=== PATIENT | female | born 1975 | race Caucasian/White ===

== ENCOUNTER → 2023-02-19 12:30 | Outpatient (BNVA) | payer MEDICARE, MEDICAID, SELFPAY | PROVIDERS: PCP Internal Medicine; Visit Provider Dietitian, Registered | DX: K76.0 Fatty (change of) liver, not elsewhere classified (principal); E66.9 Obesity, unspecified; Z68.31 Body mass index [BMI] 31.0-31.9, adult | CPT/HCPCS: 97802 ==

== ENCOUNTER 2023-12-16 08:53 | Outpatient (AMB) | payer MEDICARE, MEDICAID, SELFPAY ==
--- NOTE | 2023-12-16 08:57 | A.OFFVIS_ITS ---
Intake VS Expanded 12/16/23 08:58 Height 5 ft 6 in Weight 209 lb 14.081 oz BMI 33.9 Intake Visit Reasons: GERD/CONFIRMED HPI Nutrition Presentation Details Pt presents for MNT f/u for GERD, fatty liver, BArrets'. The Pt was referred by Timmy Beckett from [facility]. Pt was last seen in 02/2023 . Pt reports she has pre DM and was recently diagnosed with gastroparesis and is continuing to work on dietary modifications. Pt denies vomiting, reports having 1-2 bowel movement per week Pt is looking for information on gastroparesis diet. Most Recent Diabetes Results: No Data to Display Assessment & Plan Assessment & Plan (1) Fatty liver: Code(s): K76.0 - Fatty (change of) liver, not elsewhere classified Plan: Work on choosing low fat foods - see low fat meal plan (2) Obesity (BMI 30.0-34.9): Comment: Pt reports also having gastroparesis and pre DM- will discuss low fat diet concepts Code(s): E66.9 - Obesity, unspecified Plan: USed wt : 89 kg (02/2024) , 95 kg (12/2023) Est kcal needs as per MSJ: 1852 (40% carb, 30% protein/fat) Est fluid needs as per 25-30 ml/d: 2225 Est prot per day as per 1 g/kg bw: 89 Recommend fiber intake : 8-10 g per day and gradually increase to 25-28 g per day or as tolerated Recommend sodium intake per day : less than 2000 mg Educated patient on: ( R = reviewed V = verbalizes understanding N/R = needs review N/A = not applicable * Food sources of carbohydrate, adequate serving sizes and its role in various health conditions: R * Differences between complex carbohydrates a simple carbohydrates, role of fiber in diet: R * Differences between types of fats and role in diet (mono on saturated fat fatty acids, saturated fatty acids, trans fats): R basic low fat * Food sources of sodium in salt and healthy modifications for heart health in kidney health: NR * Healthy plate method concept: R * Physical activity: Benefits a precaution: R Patient Instructions: Work reducing portion sizes of your meals and work on having low fat food options Reduce significantly on fried foods/pastries/chips and similar foods which are high in fat as these exacerbate gastroparesis symptoms Choose fruits (pure, canned in its soft juice preferably) instead of pastries, choose baked, steamed, ground lean protein foods instead of fried see [id number] ivana meal plan as reference Coding Level of Care Code Nutr Indiv Subseq (00974) Diagnoses Fatty liver K76.0 Obesity (BMI 30.0-34.9) E66.9 Time Spent (min) 30
[2023-12-16 08:58] VITALS: BMI 33.9
== END 2023-12-16 09:53 | disposition home or self-care (01) ==
PROVIDERS: PCP Internal Medicine; Visit Provider Dietitian, Registered
DX: K76.0 Fatty (change of) liver, not elsewhere classified (principal); E66.9 Obesity, unspecified

== ENCOUNTER → 2023-12-16 08:53 | Outpatient (BNVA) | payer MEDICARE, MEDICAID, SELFPAY | PROVIDERS: PCP Internal Medicine; Visit Provider Dietitian, Registered | DX: K76.0 Fatty (change of) liver, not elsewhere classified (principal); E66.9 Obesity, unspecified; Z68.33 Body mass index [BMI] 33.0-33.9, adult | CPT/HCPCS: 97803 ==

== ENCOUNTER 2024-03-24 10:07 | Outpatient (AMB) | payer MEDICARE, MEDICAID, SELFPAY ==
[2024-03-24 10:41] VITALS: BMI 33.4
--- NOTE | 2024-03-24 10:41 | A.OFFVIS_ITS ---
VS Expanded 03/24/24 10:41 Height 5 ft 6 in Weight 207 lb 0.225 oz BMI 33.4 Intake Visit Reasons: GERD/GASTROPARESIS/LVM Nutrition Presentation Details: Pt presents for MNT for fatty liver B: water/coffee 10-11 am egg scrambled avocado , sourdough , butter 4-5 pm dinner pasta/chicken beverages: water 3-4 x/d, coffee 1/d fruit:0-1/d ve-3 x/wk fish:not including physical activity: daily life activities BS Monitoring Most Recent Diabetes Results: No Data to Display WUY-Ubtqeox-Fi.Jeor Equation Height: 5 ft 6 in Weight: 207 lb Resting Metabolic Rate: 1588.59 Calculated Activity Level: Sedentary Calories Needed to Maintain Weight: 1906.31 Diagnosis Nutrition problem #1: food nutri know defi As related to (etiology) #1: diagnosis As evidenced by (sign/symptom) #1: knowledge deficit of diet Assessment & Plan Assessment & Plan (1) Fatty liver: Code(s): K76.0 - Fatty (change of) liver, not elsewhere classified Category: Medical Plan: Work on choosing low fat foods - see low fat meal plan (2) Obesity (BMI 30.0-34.9): Comment: Pt reports also having gastroparesis and pre DM- will discuss low fat diet concepts Code(s): E66.9 - Obesity, unspecified Category: Medical Plan: USed wt : 89 kg (02/2024) , 95 kg (12/2023) Est kcal needs as per MSJ: 1852 (40% carb, 30% protein/fat) Est fluid needs as per 25-30 ml/d: 2225 Est prot per day as per 1 g/kg bw: 89 Recommend fiber intake : 8-10 g per day and gradually increase to 25-28 g per day or as tolerated Recommend sodium intake per day : less than 2000 mg Educated patient on: ( R = reviewed V = verbalizes understanding N/R = needs review N/A = not applicable * Food sources of carbohydrate, adequate serving sizes and its role in various health conditions: R * Differences between complex carbohydrates a simple carbohydrates, role of fiber in diet: R * Differences between types of fats and role in diet (mono on saturated fat fatty acids, saturated fatty acids, trans fats): R basic low fat * Food sources of sodium in salt and healthy modifications for heart health in kidney health: NR * Healthy plate method concept: R * Physical activity: Benefits a precaution: R Patient Instructions: Work on having small meals, low in fat Have a meal replacement once a day Coding Level of Care Code Nutr Indiv Subseq (83177) Diagnoses Fatty liver K76.0 Obesity (BMI 30.0-34.9) E66.9 Time Spent (min) 20
[2024-03-30 13:23] VITALS: BMI 33.4
== END 2024-03-24 11:02 | disposition home or self-care (01) ==
PROVIDERS: PCP Internal Medicine; Visit Provider Dietitian, Registered
DX: K76.0 Fatty (change of) liver, not elsewhere classified (principal); E66.9 Obesity, unspecified

== ENCOUNTER → 2024-03-24 10:07 | Outpatient (BNVA) | payer MEDICARE, MEDICAID, SELFPAY | PROVIDERS: PCP Internal Medicine; Visit Provider Dietitian, Registered | DX: K21.9 Gastro-esophageal reflux disease without esophagitis (principal); K31.84 Gastroparesis; K76.0 Fatty (change of) liver, not elsewhere classified; E66.9 Obesity, unspecified; Z71.3 Dietary counseling and surveillance; Z68.33 Body mass index [BMI] 33.0-33.9, adult | CPT/HCPCS: 97803 ==

== ENCOUNTER 2024-06-02 10:04 | Outpatient (AMB) | payer MEDICARE, MEDICAID, SELFPAY ==
--- NOTE | 2024-06-02 10:09 | A.OFFVIS_ITS ---
VS Expanded 06/02/24 10:12 Height 5 ft 6 in Weight 207 lb 7.28 oz BMI 33.5 Intake Visit Reasons: Fatty Liver/CONFIRMED Nutrition Presentation Details: Pt presents for MNT for fatty liver Pt reports making dietary medications, choosing foods with less sugars and less fats. Tends to eat out twice a week and may choose a higher fat meal later feeling uncomfortable BS Monitoring Most Recent Diabetes Results: No Data to Display Assessment & Plan Assessment & Plan (1) Fatty liver: Code(s): K76.0 - Fatty (change of) liver, not elsewhere classified Category: Medical Plan: Work on choosing low fat foods - see low fat meal plan (2) Obesity (BMI 30.0-34.9): Comment: Pt reports also having gastroparesis and pre DM- will discuss low fat diet concepts Code(s): E66.9 - Obesity, unspecified Category: Medical Plan: USed wt : 89 kg (02/2024) , 95 kg (12/2023) Est kcal needs as per MSJ: 1852 (40% carb, 30% protein/fat) Est fluid needs as per 25-30 ml/d: 2225 Est prot per day as per 1 g/kg bw: 89 Recommend fiber intake : 8-10 g per day and gradually increase to 25-28 g per day or as tolerated Recommend sodium intake per day : less than 2000 mg Educated patient on: ( R = reviewed V = verbalizes understanding N/R = needs review N/A = not applicable * Food sources of carbohydrate, adequate serving sizes and its role in various health conditions: R * Differences between complex carbohydrates a simple carbohydrates, role of fiber in diet: R * Differences between types of fats and role in diet (mono on saturated fat fatty acids, saturated fatty acids, trans fats): R basic low fat * Food sources of sodium in salt and healthy modifications for heart health in kidney health: NR * Healthy plate method concept: R * Physical activity: Benefits a precaution: R Patient Instructions: Continue working on choosing lower fat foods (choose lean , steamed vs fried foods, reduce on highly processed foods (fritter/nuggets and similar foods, choose baked/steamed vs fried , reduce on pastries and opt for a fruit of choice ) Have 3 small meals per day Drink water with meals or milk , working on reducing on sugary beverages Coding Level of Care Code Nutr Indiv Subseq (74543) Diagnoses Fatty liver K76.0 Obesity (BMI 30.0-34.9) E66.9 Time Spent (min) 30
[2024-06-02 10:12] VITALS: BMI 33.5
== END 2024-06-02 10:46 | disposition home or self-care (01) ==
PROVIDERS: PCP Internal Medicine; Visit Provider Dietitian, Registered
DX: K76.0 Fatty (change of) liver, not elsewhere classified (principal); E66.9 Obesity, unspecified

== ENCOUNTER → 2024-06-02 10:04 | Outpatient (BNVA) | payer MEDICARE, MEDICAID, SELFPAY | PROVIDERS: PCP Internal Medicine; Visit Provider Dietitian, Registered | DX: K76.0 Fatty (change of) liver, not elsewhere classified (principal); E66.9 Obesity, unspecified; Z68.33 Body mass index [BMI] 33.0-33.9, adult | CPT/HCPCS: 97803 ==

== ENCOUNTER 2024-08-05 10:54 | Outpatient (AMB) | payer MEDICARE, MEDICAID, SELFPAY ==
--- NOTE | 2024-08-05 10:55 | A.OFFVIS_ITS ---
Vital Signs 08/05/24 10:57 Height 5 ft 6 in Weight 202 lb 13.204 oz BMI 32.7 BP 128/80 Blood Pressure Location Rt brachial Position Sitting Pulse 80 Pulse Source Pulse Oximeter Intake Visit Reasons: +BERNARDA/CM Intake Note: New Patient presents today to establish treatment for +BERNARDA Results: Customer Marketing Assistant Required: No Accompanied by: Self / Same As Patient Allergies cyclobenzaprine Allergy (Unknown, Verified 08/05/24 10:56) Unknown hydroxychloroquine [From Plaquenil] Allergy (Unknown, Verified 08/05/24 10:56) Unknown sulfamethoxazole [From Bactrim] Allergy (Unknown, Verified 08/05/24 10:56) Unknown trimethoprim [From Bactrim] Allergy (Unknown, Verified 08/05/24 10:56) Unknown hydrochlorothiazide Adverse Reaction (Unknown, Verified 08/05/24 10:56) Unknown Sulfa (Sulfonamide Antibiotics) Adverse Reaction (Unknown, Verified 08/05/24 10:56) Unknown tramadol Adverse Reaction (Unknown, Verified 08/05/24 10:56) Unknown sulfa drugs Adverse Reaction (Unknown, Uncoded 08/05/24 10:56) Unknown Medication List - Last Reconciled 08/05/24 by Eloina Darnell MD albuterol sulfate 90 mcg/actuation inhalation betamethasone dipropionate 0.05% appl topical cholecalciferol (vitamin D3) 50 mcg PO DAILY famotidine 40 mg PO DAILY pantoprazole 40 mg PO DAILY HPI Comments Details: Patient is a 49-year-old female current everyday smoker with 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 Patient states that for several years she has been having polyarticular joint pain but her biggest complaints are her knees and the tops of her feet. She denies prolonged morning stiffness. Does occasionally get pain in her hands with the usually worse at the end of the day. She also notes muscle cramps that occur during the night. Denies recurrent infections. Denies rashes, photosensitivity, alopecia, oral/nasal ulcers, sicca symptoms, lymphadenopathy, chest pain/shortness of breath, inflammatory type joint pain, foamy urine, lower extremity edema, muscle weakness, Raynaud's Also denies history of seizure, CVA, psychosis, history of kidney problems, history of cytopenias, history of VTE including PE or DVTs OB History: +1 (1st trimester loss at 6 weeks) No known family history of any autoimmune disease. Of note patient has a vitamin B12 deficiency for which she requires infusions for. She is unsure why this may be. She also has reflux complicated by Rodriguez's esophagus although she says she normally does not have any symptoms of reflux. In the past she was told she had fibromyalgia and lupus but was not placed on any treatment [facility] Medical History (Updated 08/05/24 @ 11:14 by Eloina Darnell MD) Vitamin B12 deficiency Positive BERNARDA (antinuclear antibody) Axillary lymphadenopathy delivery delivered Surgical History (Updated 08/05/24 @ 11:01 by CHEY Bonilla) Hx of colonoscopy S/P endoscopy Status post hysteroscopic ablation of endometrium Hx of tubal ligation H/O eye surgery H/O arthroscopy Family History Mother Leukemia Stroke Dementia Father Diabetes Hypertension CKD (chronic kidney disease) Social History Alcohol intake: never Patient Tobacco Use Status: Former Tobacco user Review of Systems Const Details: Review of Systems Constitutional: Denies fever, chills, weight loss ENT: Denies vision changes, eye pain or eye redness, dental caries, dry mouth GI: Denies nausea, vomiting, diarrhea, abdominal pain, change in BM Pulm: Denies SOB, JUAN, hemoptysis, wheezing Cards: Denies chest pain, palpitations Skin: Denies Raynaud's, rash, nail changes, photosensitivity, FIRE EXTINGUISHER INSPECTOR: Denies headaches, weakness, paresthesias, recurrent falls MSK: as per HPI All other systems reviewed and are unremarkable except noted above Physical Exam Vital Signs: Last Vital Signs Pulse 80 11/27/24 10:57 BP 128/80 08/05/24 10:57 BMI result Body Mass Index 32.7 Physical Examination CONSTITUITIONAL Patient alert and cooperative. Well appearing and in no apparent painful distres s HEENT Conjunctiva and sclera clear. ?Pupils equal round and reactive to light. ?No lymphadenopathy. ?Poor dentition. No oral ulcers noted. No evidence of discoid rash to the jamari of ears CHEST/RESPIRATORY SYSTEM Normal respiratory effort and able to speak in complete sentences. ?Clear to auscultation bilaterally. ?No crackles, rales, rhonchi, wheezes heard. CARDIAC SYSTEM Regular rate and rhythm. ?S1 and S2 heard no murmurs. ?Radial pulses intact bilaterally MSK Hands: ?Good registered nurse bone marrow transplant strength bilaterally - 5/5. ?No deformities noted. ?No synovitis noted to the MCPs, PIPs or DIPs. ?No tenderness to palpation of these joints. Wrists: ?Full range of motion at the wrists without pain. ?No tenderness to palpation or synovitis noted to the wrists. Elbows: Full range of motion without pain. No tenderness, weakness, swelling, increased warmth or erythema. Shoulders: Full range of motion without pain. No tenderness, weakness, swelling, increased warmth or erythema. Hips: Full range of motion without pain. Hip bursa: No tenderness to palpation Knees: ?Full range of motion. ?No tenderness, swelling, increased warmth or erythema.?No effusion or crepitations Ankles: Full range of motion. ?No tenderness, swelling, increased warmth or erythema.? Feet: ?Negative squeeze test. ?No tenderness to palpation or swelling of the MTPs. Tender points:??No tenderness to palpation of the neck, shoulders, chest, elbows, hips, buttocks or knees. SKIN Skin intact without rashes. Results Reviewed Results Reviewed: Results reviewed from [facility] consult external. BERNARDA 1:1250 nuclear pattern. Leukocytosis noted. Assessment & Plan Assessment & Plan (1) Positive BERNARDA (antinuclear antibody): Code(s): R76.8 - Other specified abnormal immunological findings in serum Category: Medical Plan: #Positive BERNARDA The presence of antinuclear antibodies (BERNARDA) is mainly associated with connective tissue diseases (CTD). ?However, their presence is found in healthy people especially in women and patients >65. ?In healthy individuals, the frequency of BERNARDA has been shown to be 31.7% of individuals at 1:40 serum dilution, 13.3% at 1:80, 5.0% at 1:160, and 3.3% at 1:320 (2). Some drugs and xenobiotics are also important for the development of BERNARDA (hydralazine, hydrochlorothiazide, minocycline, terbinafine, ciprofloxacin, furosemide, omeprazole). Moreover, the deficiency of vitamin D in the body of patients correlates with occurrence of these antibodies (1). In this patient have a very low suspicion of lupus or any other connective tissue disease at this time. She does not have any clinical evidence to suggest inflammatory arthritis, Raynaud's, alopecia, photosensitivity, rashes, recurrent VTEs, recurrent 2nd trimester miscarriages. What is concerning is the fact that she has chronic B12 deficiency and we do not know why that is. She also has Rodriguez's esophagus. I think it is worth exploring other autoimmune diseases such as autoimmune hepatitis, pernicious anemia, celiac disease, CVID. Blood work sent. She will follow up in 09/28/2024 1. Rosina Avilez, Mehul Woodward, Joslyn Mccallum. Antinuclear antibodies in healthy people and non-rheumatic diseases - diagnostic and clinical implications. Reumatologia. 2018;56(4):243-248. doi: 10.5114/reum.2018.93789. Epub 2017May 09. PMID: [id number]; PMCID: [id number]. 2. Troncoso EM, Shavon TE, Anna JS, Brittany B, Neo R, Memo MJ, Clay T, Fidel JA, Tarah JR, Santo RG, Sharon RN, Harper JS, Trent NF, Janet RJ, Irene Y, Ruba A, Darrell MR, Joanna CASTRO. Range of antinuclear antibodies in healthy individuals. Arthritis Rheum. 1996;40(9):1601-11. doi: 10.1002/art.[id number]. PMID: 8559195. Plan I spent 60 minutes reviewing the record and labs, seeing the patient, discussing the treatment plan and documenting in the medical record Orders: Orders 2 Erythrocyte Sedimentation Rate Today E53.8 - Deficiency of other specified B group vitamins, R76.8 - Other specified abnormal immunological findings in serum Protein Creatinine Ratio, Ur Today E53.8 - Deficiency of other specified B group vitamins, R76.8 - Other specified abnormal immunological findings in serum Thyroglobulin Antibodies Today E53.8 - Deficiency of other specified B group vitamins, R76.8 - Other specified abnormal immunological findings in serum Parietal Cell Antibody Today E53.8 - Deficiency of other specified B group vitamins, R76.8 - Other specified abnormal immunological findings in serum Smooth Muscle Antibody Today E53.8 - Deficiency of other specified B group vitamins, R76.8 - Other specified abnormal immunological findings in serum Mitochondrial Antibody Today E53.8 - Deficiency of other specified B group vitamins, R76.8 - Other specified abnormal immunological findings in serum XR knee RT 3V Today E53.8 - Deficiency of other specified B group vitamins, R76.8 - Other specified abnormal immunological findings in serum XR knee LT 3V Today E53.8 - Deficiency of other specified B group vitamins, R76.8 - Other specified abnormal immunological findings in serum XR foot LT min 3V Today E53.8 - Deficiency of other specified B group vitamins, R76.8 - Other specified abnormal immunological findings in serum XR foot RT min 3V Today E53.8 - Deficiency of other specified B group vitamins, R76.8 - Other specified abnormal immunological findings in serum Protein Electrophoresis, Serum Today E53.8 - Deficiency of other specified B group vitamins, R76.8 - Other specified abnormal immunological findings in serum Immunofixation Pnl, Serum Today E53.8 - Deficiency of other specified B group vitamins, R76.8 - Other specified abnormal immunological findings in serum Complement C3 Today E53.8 - Deficiency of other specified B group vitamins, R76.8 - Other specified abnormal immunological findings in serum Complement C4 Today E53.8 - Deficiency of other specified B group vitamins, R76.8 - Other specified abnormal immunological findings in serum Complete Blood Count Auto Diff Today E53.8 - Deficiency of other specified B group vitamins, R76.8 - Other specified abnormal immunological findings in serum Comprehensive Met. Panel Today E53.8 - Deficiency of other specified B group vitamins, R76.8 - Other specified abnormal immunological findings in serum C Reactive Protein Today E53.8 - Deficiency of other specified B group vitamins, R76.8 - Other specified abnormal immunological findings in serum Scleroderma 70 Antibody Today E53.8 - Deficiency of other specified B group vitamins, R76.8 - Other specified abnormal immunological findings in serum Sjogren's Antibodies Today E53.8 - Deficiency of other specified B group vitamins, R76.8 - Other specified abnormal immunological findings in serum Thyroid Peroxidase Antibodies Today E53.8 - Deficiency of other specified B group vitamins, R76.8 - Other specified abnormal immunological findings in serum Thyroid Stimulating Hormone Today E53.8 - Deficiency of other specified B group vitamins, R76.8 - Other specified abnormal immunological findings in serum XR hand wrist LT Today E53.8 - Deficiency of other specified B group vitamins, R76.8 - Other specified abnormal immunological findings in serum XR hand wrist RT Today E53.8 - Deficiency of other specified B group vitamins, R76.8 - Other specified abnormal immunological findings in serum Immunoglobulins,IgG IgA IgM Today E53.8 - Deficiency of other specified B group vitamins, R76.8 - Other specified abnormal immunological findings in serum Endomysial IgA rflx Titer Today E53.8 - Deficiency of other specified B group vitamins, R76.8 - Other specified abnormal immunological findings in serum Transglutaminase Ab IgG Today E53.8 - Deficiency of other specified B group vitamins, R76.8 - Other specified abnormal immunological findings in serum Beta-2 Glycoprotein Antibody Today E53.8 - Deficiency of other specified B group vitamins, R76.8 - Other specified abnormal immunological findings in serum Lupus Anticoagulant Panel Today E53.8 - Deficiency of other specified B group vitamins, R76.8 - Other specified abnormal immunological findings in serum Cardiolipin Antibodies Today E53.8 - Deficiency of other specified B group vitamins, R76.8 - Other specified abnormal immunological findings in serum Coding Level of Care Code New Pt Level 5 (60722) Complex EM visit Add On G2211 Diagnoses Positive BERNARDA (antinuclear antibody) R76.8
[2024-08-05 10:57] VITALS: BP 128/80; PULSE 80; BMI 32.7
== END 2024-08-05 12:07 | disposition home or self-care (01) ==
PROVIDERS: PCP Internal Medicine; Visit Provider Student in an Organized Health Care Education/Training Program
DX: R76.8 Other specified abnormal immunological findings in serum (principal)
CPT/HCPCS: 99205; G2211

== ENCOUNTER 2024-08-05 10:54 | Outpatient (REF) | payer MEDICARE, MEDICAID, SELFPAY ==
--- NOTE | ~2024-08-05 | XR_ITS ---
EXAMINATION: Bilateral knee series CLINICAL INFORMATION: Reason for Exam R76.8 - Other specified abnormal immunological findings in serum COMPARISON: None. TECHNIQUE: 3 views of each knee including AP upright FINDINGS: Right knee: Postoperative changes related to previous anterior cruciate ligament reconstruction. Mild osteoarthritis of patellofemoral compartment with small marginal osteophytes and possible central osteophytes. The medial and lateral compartments are normal. No joint effusion. Left knee: The bones joints and soft tissues are normal no effusion XR/XR knee RT 3V IMPRESSION: Right knee: Postoperative changes of the right knee. Mild patellofemoral arthrosis. Left knee: Normal Electronically signed by: Bay Braga MD 08/09/2024 01:51 PM EST
--- NOTE | ~2024-08-05 | XR_ITS ---
EXAMINATION: Bilateral knee series CLINICAL INFORMATION: Reason for Exam R76.8 - Other specified abnormal immunological findings in serum COMPARISON: None. TECHNIQUE: 3 views of each knee including AP upright FINDINGS: Right knee: Postoperative changes related to previous anterior cruciate ligament reconstruction. Mild osteoarthritis of patellofemoral compartment with small marginal osteophytes and possible central osteophytes. The medial and lateral compartments are normal. No joint effusion. Left knee: The bones joints and soft tissues are normal no effusion XR/XR knee LT 3V IMPRESSION: Right knee: Postoperative changes of the right knee. Mild patellofemoral arthrosis. Left knee: Normal Electronically signed by: Bay Braga MD 08/09/2024 01:51 PM EST
[2024-08-05 12:10] LABS: MANUAL DIFF FLAG NO
[2024-08-05 12:18] LABS: Basophils Absolute Auto 0.1 X10*3/uL (0.0-0.2); Basophils Percent Auto 0.8 % (0-2); Eosinophils Absolute Auto 0.5 X10*3/uL (0.0-0.4); Eosinophils Percent Auto 3.8 % (0-4); Hematocrit 44.5 % (37.0-47.0); Hemoglobin 14.7 g/dl (12.0-16.0); Imm Gran Abs Auto 0.04 X10*3/uL (0.00-0.03); Imm Gran Pct Auto 0.3 % (0.0-0.4); Lymphocytes Absolute Auto 4.5 X10*3/uL (1.2-4.9); Mean Corpuscular Hemoglobin 29.8 pg (27.0-33.0); Mean Corpuscular Volume 90.1 fL (80.0-98.0); Mean Platelet Volume 10.5 fL (9.4-12.3); Monocytes Percent Auto 7.6 % (2-11); Neutrophils Absolute Auto 6.7 x10*3/uL (2.0-8.3); Neutrophils Percent Auto 52.5 % (45-73); Platelet Count 327 X10*3/uL (160-400); Red Blood Count 4.94 X10*6/uL (4.20-5.50); Red Cell Distribution Width 14.1 % (11.0-16.0); White Blood Count 12.8 X10*3/uL (4.8-10.8)
[2024-08-05 12:57] LABS: Erythrocyte Sedimentation Rate 2 MM/HR (0-20)
[2024-08-05 12:58] LABS: Alanine Aminotransferase 17 U/L (0-31); Albumin Level 3.9 g/dL (3.5-5.0); Alkaline Phosphatase 62 U/L (39-117); Anion Gap 13 (12-20); Aspartate Amino Transferase 22 U/L (5-31); Bilirubin Total 0.4 mg/dL (0.0-1.0); Blood Urea Nitrogen 9 mg/dL (9-16); C Reactive Protein 0.41 mg/dL (< or = 0.50); Calcium 8.9 mg/dL (8.4-10.2); Carbon Dioxide 25 mmol/L (22-29); Chloride 109 mmol/L (96-108); Estimated Glomerular Filt Rate > 60; Glucose Random 114 mg/dL (60-115); Potassium 3.9 mmol/L (3.3-5.1); Sodium 143 mmol/L (135-145); Total Protein 6.3 g/dL (6.5-8.0)
[2024-08-05 13:06] LABS: Thyroid Stimulating Hormone 1.53 uIU/mL (0.32-4.0)
[2024-08-05 13:06] LABS: Creatinine Urine 233.14 mg/dL; Protein/Creatinine Ratio, Ur 0.05 (<0.2); Total Protein Urine Random 11 mg/dL (<12)
[2024-08-07 11:58] LABS: Prot Elec - Albumin 3.7 g/dL (3.8-4.8); Prot Elec - Alpha1 0.3 g/dL (0.2-0.3); Prot Elec - Alpha2 0.5 g/dL (0.5-0.9); Prot Elec - Beta 1 0.4 g/dL (0.4-0.6); Prot Elec - Beta 2 0.2 g/dL (0.2-0.5); Prot Elec - Gamma 0.9 g/dL (0.8-1.7); Prot Elec - Total Protein 5.9 g/dL (6.1-8.1)
[2024-08-07 14:19] LABS: Cardiolipin IgG Ab <2.0 GPL-U/mL; Cardiolipin IgM Ab <2.0 MPL-U/mL
[2024-08-07 16:53] LABS: Complement C3 89 mg/dL (83-193)
[2024-08-07 17:42] LABS: Thyroglobulin Antibodies <1 IU/mL (< or = 1); Thyroid Peroxidase Antibodies <1 IU/mL (<9)
[2024-08-07 21:19] LABS: Antibody to SS-A Antigen <1.0 NEG AI (<1.0 NEG); Antibody to SS-B Antigen <1.0 NEG AI (<1.0 NEG); Scleroderma 70 Antibody <1.0 NEG AI (<1.0 NEG)
[2024-08-07 21:38] LABS: Transglutaminase Ab IgG <1.0 U/mL
[2024-08-10 09:59] LABS: Mitochondrial Antibodies NEGATIVE (NEGATIVE)
[2024-08-10 15:33] LABS: Beta-2 Glycoprotein IgA <2.0 U/mL (<20.0); Beta-2 Glycoprotein IgG <2.0 U/mL (<20.0); Beta-2 Glycoprotein IgM <2.0 U/mL (<20.0)
[2024-08-10 21:44] LABS: IgA 94 mg/dL (47-310); IgG 1070 mg/dL (600-1640); IgM 48 mg/dL (50-300)
[2024-08-11 05:19] LABS: PTT (LAC) Screen 37 sec (<=40)
[2024-08-11 05:39] LABS: Smooth Muscle Antibody 48 U (<20)
[2024-08-11 13:18] LABS: Parietal Cell Antibody <=20.0 Unit (<=20.0)
[2024-08-13 04:28] LABS: Endomysial IgA Antibody Negative (Negative)
== END 2024-08-05 10:55 | disposition home or self-care (01) ==
LOC: HO.XRAY 10:54
PROVIDERS: PCP Internal Medicine; Visit Provider Student in an Organized Health Care Education/Training Program
DX: E53.8 Deficiency of other specified B group vitamins (principal); R76.8 Other specified abnormal immunological findings in serum; K76.0 Fatty (change of) liver, not elsewhere classified; J44.9 Chronic obstructive pulmonary disease, unspecified
CPT/HCPCS: 36415; 73110; 73130; 73562; 73630; 80053; 82570; 82784; 83516; 84156; 84165; 84443; 85025; 85597; 85598; 85613; 85652; 85730; 86015; 86140; 86146; 86147; 86160; 86231; 86235; 86334; 86364; 86376; 86381; 86800; 99202

== ENCOUNTER 2024-08-17 08:26 | Outpatient (REF) | payer MEDICARE, MEDICAID, SELFPAY ==
--- NOTE | ~2024-08-17 | US_ITS ---
EXAMINATION: US ABDOMEN COMPLETE CLINICAL INFORMATION: Fatty change of liver, not elsewhere classified. COMPARISON: None available. TECHNIQUE: Real-time imaging of the abdominal viscera. FINDINGS: PANCREAS: Visualized portions are unremarkable. ABDOMINAL AORTA: The proximal, mid, and distal segments are normal in caliber. INFERIOR VENA CAVA: Visualized portions are normal. LIVER: The liver is normal in size. The liver contour is normal. Increased echogenicity of the liver parenchyma, this can be seen in the setting of hepatic steatosis or liver parenchymal disease. No focal hepatic lesion. There is no intrahepatic biliary duct dilatation seen. GALLBLADDER: The gallbladder is physiologically distended. Multiple mobile gallstones are present. No evidence of gallbladder wall thickening or pericholecystic fluid. COMMON BILE DUCT: Normal in caliber measuring 0.5 cm in diameter. RIGHT KIDNEY: No hydronephrosis. No renal calculi or focal parenchymal lesions. The kidney measures 11.6 cm in maximum dimension. LEFT KIDNEY: No hydronephrosis. No renal calculi or focal parenchymal lesions. The kidney measures 11.3 cm in maximum dimension. SPLEEN: Not visualized. FREE FLUID: None. US/US abdomen complete IMPRESSION: 1. Increased echogenicity of the liver parenchyma, this can be seen in the setting of hepatic steatosis or liver parenchymal disease. 2. Cholelithiasis without ultrasound evidence of acute cholecystitis. Electronically signed by: Phil Correa MD 08/30/2024 01:16 PM [facility]
== END 2024-08-17 08:27 | disposition home or self-care (01) ==
LOC: HO.HMGCX 08:26
PROVIDERS: PCP Internal Medicine; Visit Provider Student in an Organized Health Care Education/Training Program
DX: K76.0 Fatty (change of) liver, not elsewhere classified (principal); R76.8 Other specified abnormal immunological findings in serum; K80.20 Calculus of gallbladder without cholecystitis without obstruction
CPT/HCPCS: 76700

== ENCOUNTER 2024-10-06 10:29 | Outpatient (AMB) | payer MEDICARE, MEDICAID, SELFPAY ==
[2024-10-06 10:31] VITALS: BP 108/78; PULSE 76; BMI 32.5
--- NOTE | 2024-10-06 10:31 | A.OFFVIS_ITS ---
Vital Signs 10/06/24 10:31 Height 5 ft 6 in Weight 201 lb 8.04 oz BMI 32.5 BP 108/78 Blood Pressure Location Lt brachial Position Sitting Pulse 76 Pulse Source Pulse Oximeter Intake Visit Reasons: follow up Intake Note: Patient last see by Doctor Eloina Darnell 08/05/24. Presents today for follow up and XRs/labs test results. Metal Tile Setter Required: No Accompanied by: Self / Same As Patient Allergies cyclobenzaprine Allergy (Unknown, Verified 10/06/24 10:35) Unknown hydroxychloroquine [From Plaquenil] Allergy (Unknown, Verified 10/06/24 10:35) Unknown sulfamethoxazole [From Bactrim] Allergy (Unknown, Verified 10/06/24 10:35) Unknown trimethoprim [From Bactrim] Allergy (Unknown, Verified 10/06/24 10:35) Unknown hydrochlorothiazide Adverse Reaction (Unknown, Verified 10/06/24 10:35) Unknown Sulfa (Sulfonamide Antibiotics) Adverse Reaction (Unknown, Verified 10/06/24 10:35) Unknown tramadol Adverse Reaction (Unknown, Verified 10/06/24 10:35) Unknown sulfa drugs Adverse Reaction (Unknown, Uncoded 10/06/24 10:35) Unknown HPI Comments Details: Patient is a 49-year-old female current everyday smoker with GERD complicated by Rodriguez's esophagus, vitamin B12 deficiency, COPD, gastroparesis, nonalcoholic fatty liver disease, anxiety and depression who presents today for follow up Interval History: Patient presented initially 08/05/2024. For the evaluation of positive BERNARDA in the setting of polyarticular joint pain. Exam and history was not consistent with an autoimmune connective tissue disease however she does have a history of B12 deficiency, gastroparesis and severe GERD which was concerning. Today, No changes from last visit. Recently had liver biopsy which confirmed stage I liver fibrosis in his also following up with GI for autoimmune hepatitis. Rheumatologic History: Patient initially presented for evaluation of positive BERNARDA and polyarthralgias. History was not consistent with lupus or any other autoimmune connective tissue diseases. Her positive BERNARDA is likely related to her autoimmune hepatitis. Initial history: Several years she has been having polyarticular joint pain but her biggest complaints are her knees and the tops of her feet. She denies prolonged morning stiffness. Does occasionally get pain in her hands with the usually worse at the end of the day. She also notes muscle cramps that occur during the night. Denies recurrent infections. Denies rashes, photosensitivity, alopecia, oral/nasal ulcers, sicca symptoms, lymphadenopathy, chest pain/shortness of breath, inflammatory type joint pain, foamy urine, lower extremity edema, muscle weakness, Raynaud's Also denies history of seizure, CVA, psychosis, history of kidney problems, history of cytopenias, history of VTE including PE or DVTs OB History: +1 (1st trimester loss at 6 weeks) No known family history of any autoimmune disease. Of note patient has a vitamin B12 deficiency for which she requires infusions for. She is unsure why this may be. She also has reflux complicated by Rodriguez's esophagus although she says she normally does not have any symptoms of reflux. In the past she was told she had fibromyalgia and lupus but was not placed on any treatment Current Rheumatology Medication(s): [facility] Medical History (Updated 10/06/24 @ 11:03 by Eloina Darnell MD) Autoimmune hepatitis Vitamin B12 deficiency Positive BERNARDA (antinuclear antibody) Axillary lymphadenopathy delivery delivered Surgical History Hx of colonoscopy S/P endoscopy Status post hysteroscopic ablation of endometrium Hx of tubal ligation H/O eye surgery H/O arthroscopy Family History Mother Leukemia Stroke Dementia Father Diabetes Hypertension CKD (chronic kidney disease) Social History Alcohol intake: never Patient Tobacco Use Status: Former Tobacco user Review of Systems Const Details: Review of Systems Constitutional: Denies fever, chills, weight loss ENT: Denies vision changes, eye pain or eye redness, dental caries, dry mouth GI: Denies nausea, vomiting, diarrhea, abdominal pain, change in BM Pulm: Denies SOB, JUAN, hemoptysis, wheezing Cards: Denies chest pain, palpitations Skin: Denies Raynaud's, rash, nail changes, photosensitivity, AVICULTURIST: Denies headaches, weakness, paresthesias, recurrent falls MSK: as per HPI All other systems reviewed and are unremarkable except noted above Physical Exam Vital Signs: Last Vital Signs Pulse 76 10/06/24 10:31 BP 108/78 10/06/24 10:31 BMI result Body Mass Index 32.5 Physical Examination CONSTITUITIONAL Patient alert and cooperative. Well appearing and in no apparent painful distress HEENT Conjunctiva and sclera clear. ?Pupils equal round and reactive to light. ?No lymphadenopathy. ?Poor dentition. No oral ulcers noted. No evidence of discoid rash to the jamari of ears CHEST/RESPIRATORY SYSTEM Normal respiratory effort and able to speak in complete sentences. ?Clear to auscultation bilaterally. ?No crackles, rales, rhonchi, wheezes heard. CARDIAC SYSTEM Regular rate and rhythm. ?S1 and S2 heard no murmurs. ?Radial pulses intact bilaterally MSK Hands: ?Good barrel charrer helper strength bilaterally - 5/5. ?No deformities noted. ?No synovitis noted to the MCPs, PIPs or DIPs. ?No tenderness to palpation of these joints. Wrists: ?Full range of motion at the wrists without pain. ?No tenderness to palpation or synovitis noted to the wrists. Elbows: Full range of motion without pain. No tenderness, weakness, swelling, increased warmth or erythema. Shoulders: Full range of motion without pain. No tenderness, weakness, swelling, increased warmth or erythema. Hips: Full range of motion without pain. Hip bursa: No tenderness to palpation Knees: ?Full range of motion. ?No tenderness, swelling, increased warmth or erythema.?No effusion or crepitations Ankles: Full range of motion. ?No tenderness, swelling, increased warmth or erythema.? Feet: ?Negative squeeze test. ?No tenderness to palpation or swelling of the MTPs. Tender points:??No tenderness to palpation of the neck, shoulders, chest, elbows, hips, buttocks or knees. SKIN Skin intact without rashes. Results Reviewed Results Reviewed: Laboratory Tests 08/05/24 08/05/24 12:05 12:07 WBC 12.8 H RBC 4.94 Hgb 14.7 Hct 44.5 Plt Count 327 ESR 2 Sodium 143 Potassium 3.9 Chloride 109 H Carbon Dioxide 25 BUN 9 Creatinine 0.87 Total Bilirubin 0.4 AST 22 ALT 17 Alkaline Phosphatase 62 C-Reactive Protein 0.41 Albumin 3.9 Protein/Creatinin Ratio 0.05 IgG Total 1070 IgA Total 94 IgM 48 L GALINA Interpretation SEE NOTE SS-A/Ro Antibody <1.0 NEG SS-B/La Antibody <1.0 NEG Scl-70 Scleroderma Ab <1.0 NEG Anti-Mitochondrial Ab NEGATIVE Beta-2-GPI IgG Ab <2.0 Beta-2-GPI IgA Ab <2.0 Beta-2-GPI IgM Ab <2.0 Anti-Smooth Muscle Ab 48 H Tiss Transglutamin IgG <1.0 Thyroglobulin Antibody <1 Thyroid Peroxidase Ab <1 Anti-Parietal Cell Ab <=20.0 Anti-Cardiolipin IgG Ab <2.0 Anti-Cardiolipin IgM Ab <2.0 Complement C3 89 Complement C4 13 L XR Bilateral Feet 08/05/24 FINDINGS (Right Foot): No acute fracture or dislocation. Central subchondral cystic change at the first metatarsal head measuring up to 0.9 cm. No periarticular erosion. No concerning lytic or blastic osseous lesion. Tiny dorsal calcaneal spur. FINDINGS (Left foot): No acute fracture or dislocation. No joint space narrowing or marginal osteophytes. No osseous erosion. Tiny dorsal calcaneal spur. Left Hand/Wrist XR 08/05/24 FINDINGS: No fracture or dislocation. Normal carpal alignment. No significant joint space narrowing or marginal osteophytes. No osseous erosion. No periarticular osteopenia. No abnormal soft tissue calcification. Right Hand/Wrist XR 08/05/24 FINDINGS: No acute fracture or dislocation. Normal carpal alignment. Degenerative cystic change within the lunate. Borderline ulnar-positive variance. Findings could indicate chronic ulnar abutment. No abnormal soft tissue calcification. XR Bilateral Knees 08/05/24 FINDINGS: Right knee: Postoperative changes related to previous anterior cruciate ligament reconstruction. Mild osteoarthritis of patellofemoral compartment with small marginal osteophytes and possible central osteophytes. The medial and lateral compartments are normal. No joint effusion. Left knee: The bones joints and soft tissues are normal no effusion Assessment & Plan Assessment & Plan (1) Autoimmune hepatitis: Code(s): K75.4 - Autoimmune hepatitis Category: Medical Plan: #Autoimmune hepatitis Patient recently diagnosed with autoimmune hepatitis which is consistent with her blood work a positive BERNARDA and a positive smooth muscle antibody. She also recently had a liver biopsy which showed type 1 liver fibrosis. She does have low albumin low protein in the setting of a normal UA which is consistent with likely decreased synthesis. Discussed with patient that autoimmune hepatitis is managed by Gastroenterology and not Rheumatology. She is to follow up with her investigative assistant. Plan - follow up with Gastroenterology - RTC prn (2) Positive BERNARDA (antinuclear antibody): Code(s): R76.8 - Other specified abnormal immunological findings in serum Category: Medical Plan: #Positive BERNARDA The presence of antinuclear antibodies (BERNARDA) is mainly associated with connective tissue diseases (CTD). ?However, their presence is found in healthy people especially in women and patients >65. ?In healthy individuals, the frequency of BERNARDA has been shown to be 31.7% of individuals at 1:40 serum dilution, 13.3% at 1:80, 5.0% at 1:160, and 3.3% at 1:320 (2). Some drugs and xenobiotics are also important for the development of BERNARDA (hydralazine, hydrochlorothiazide, minocycline, terbinafine, ciprofloxacin, furosemide, omeprazole). Moreover, the deficiency of vitamin D in the body of patients correlates with occurrence of these antibodies (1). Patient can follow up p.r.n. in the future if new concerns arise. 1. Rosina Avilez, Mehul Woodward, Joslyn Mccallum. Antinuclear antibodies in healthy people and non-rheumatic diseases - diagnostic and clinical implications. Reumatologia. 2018;56(4):243-248. doi: 10.5114/reum.2018.37539. Epub 2017May 09. PMID: 95739176; PMCID: [id number]. 2. Troncoso EM, Shavon TE, Anna JS, Brittany B, Neo R, Memo MJ, Clay T, Fidel JA, Tarah JR, Santo RG, Sharon RN, Harper CHOU, Trent NF, Janet RJ, Irene Y, Ruba A, Darrell MR, Joanna CASTRO. Range of antinuclear antibodies in healthy individuals. Arthritis Rheum. 1996;40(9):1601-11. doi: 10.1002/art.6493971736. PMID: 0526497. Plan I spent 20 minutes reviewing the record and labs, seeing the patient, discussing the treatment plan and documenting in the medical record Coding Level of Care Code Est Pt Level 3 (64544) Diagnoses Autoimmune hepatitis K75.4 Positive BERNARDA (antinuclear antibody) R76.8
--- OUTSIDE RECORDS SUMMARY | 2024-10-06 11:28 | XMS_ITS | Encounter Summary ---
Author Organization [facility] Address [address] [place] [address] Care Team Providers Care Heading Saw Operator Name Role Phone Lillian Miguel MD Primary Care Provider [phone] Encounter Details Date Type Department Care Team Description 10/17/2022 Pt. Non Urgent Medical Question Internal Medicine - [address], [address] [place] [address] Lillian Miguel MD [address] [place] [phone] Social History Tobacco Use Types Packs/Day Years Used Date Smoking Tobacco: Former Cigarettes Q uit: 09/04/2021 Smokeless Tobacco: Never Comments:09/10 ppk/ dy Alcohol Use Standard Drinks/Week Comments No 0 (1 standard drink = 0.6 oz pur e alcohol) Alcohol Habits Answer Date Recorded How often do you have a drink containing alcohol ? Never 08/26/2020 How many drinks containing a lcohol do you have on a typical day when you are drinking? Not asked How often do you have six or more drinks on one occasion? Not asked Intimate Partner Violence Answer Date R ecorded Within the last year, have y ou been afraid of your partner or ex-partner? No 09/29/2020 Within the last year, have y ou been humiliated or emotionally abused in other ways by your partner or ex-partner? No Within the last year, have y ou been kicked, hit, slapped, or otherwise physically hurt by your partner or ex-partner? No 09/29/2020 Within the last year, have y ou been raped or forced to have any kind of sexual activity by your partner or ex-partner? No 09/29/2020 Sex Assigned at Date Recorded Female 10/09/2022 2:[address] Job Start Date Occupation Industry Not on file Not on file Not on file COVID-19 Exposure Response Date Recorded In the last 10 days, have yo u been in contact with someone who was confirmed or suspected to have Coronavirus/COVID-19? No / Unsure 10/17/2022 11:24 AM EST documented as of this encounter Plan of Treatment Not on file documented as of this encounter Visit Diagnoses Not on filedocumented in this encounter Care Teams Heading Saw Operator Relationship Specialty Start Date End Date Lillian Miguel MD PCP - General Internal Medicine 06/27/20 documented as of this encounter
--- OUTSIDE RECORDS SUMMARY | 2024-10-06 11:28 | XMS_ITS | Encounter Summary ---
Author Organization [facility] Address [address] [place] [address] Care Team Providers Care Activities Coordinator Name Role Phone Lillian Miguel MD Primary Care Provider [phone] Encounter Details Date Type Department Care Team Description 11/20/2022 Orders Only Medical Records [address] [place] [address] Nicolasa Naidu CNM [address] [place] [address] Social History Tobacco Use Types Packs/Day Years Used Date Smoking Tobacco: Some Days Cigarettes Last attempted to quit: 09/04/2021 Smokeless Tobacco: Never Comments:09/10 ppk/ dy [...] suspected to have Coronavirus/COVID-19? No / Unsure 11/08/2022 1:41 PM EST documented as of this encounter Plan of Treatment Not on file documented as of this encounter Procedures Procedure Name Priority Date/Time Associated Diagnosis Comments OUTSIDE MAMMO Routine 11/19/2022 documented in this encounter Results * OUTSIDE MAMMO (11/19/2022) Nicolasa Naidu CNM RADIOLOGY documented in this encounter Visit Diagnoses Not on filedocumented in this encounter Care Teams Activities Coordinator Relationship Specialty Start Date End Date Lillian Miguel MD PCP - General Internal Medicine 06/27/20 documented as of this encounter
--- OUTSIDE RECORDS SUMMARY | 2024-10-06 11:28 | XMS_ITS | Encounter Summary ---
Author Organization [facility] Address [address] [place] [address] Care Team Providers Care Lieutenant Firefighter Name Role Phone Lillian Miguel MD Primary Care Provider Reason for Visit * Reason Onset Date Comments provider call back 09/22/2024 Encounter Details Date Type Department Care Team (Late st Contact Info) Description 09/22/2024 Telephone Gastroenterology - [place] [address] [place] [phone] Lisette Escobedo PA [address] [place] [address] provider call back Social History Tobacco Use Types Packs/Day Years Used Date Smoking Tobacco: Former Cigarettes Q uit: 05/10/2022 Smokeless Tobacco: Never Alcohol Use Standard Drinks/Week Comments No 0 (1 standard drink = 0.6 oz pur e alcohol) Sex and Gender Information Value Date Recorded Sex Assigned at Female 09/24/2024 8:07 AM EST Gender Identity Female 09/24/2024 8:07 AM EST Sexual Orientation Straight 09/24/2024 8: 07 AM EST Job Start Date Occupation Industry Not on file Not on file Not on file documented as of this encounter Progress Notes * Monica Varghese [place] - 09/22/2024 1:42 PM EST I forwarded over the [employer] message to jo Cross * Gi Figueroa - 09/22/2024 1:37 PM EST Patient states she is scheduled for biopsy 09/24/2024, she is having pain right side rib cage when she takes a deep breath in, onset 09/19/2024, please advise. Also patient sent a my chart message documented in this encounter Plan of Treatment Upcoming Encounters Date Type Department Care Team (Late st Contact Info) Description 10/15/2024 11:00 AM EST Office Visit [facility] Hematology Oncology [address] [place] [phone] Yuly Francis, [address] [place] [address] 11/23/2024 11:00 AM EDT Office Visit Gastroenterology - [place] [address] [phone] Lisette Escobedo PA [address] [address] 01/04/2025 1:15 PM EDT Office Visit Pulmonolgy - [address] [phone] Demetra Wheeler MD [address] [address] 01/08/2025 9:45 AM EDT Office Visit Obstetrics & [facility]cology - [facility] [address] [place] [phone] Nicolasa Naidu CNM [address] [place] [address] 03/10/2025 11:00 AM EDT Office Visit Internal Medicine - [place] [address] [phone] Lillian Miguel MD 175 [facility] [address] [place] [phone] documented as of this encounter Visit Diagnoses Not on filedocumented in this encounter Care Teams Lieutenant Firefighter Relationship Specialty Start Date End Date Lillian Miguel MD 175 [facility] [address] [place] [phone] PCP - General Internal Medicine 06/27/20 documented as of this encounter
--- OUTSIDE RECORDS SUMMARY | 2024-10-06 11:28 | XMS_ITS | Encounter Summary ---
Author Organization [facility] Address [address] [place] [address] Care Team Providers Care Video Camera Operator Name Role Phone Lillian Miguel MD Primary Care Provider [phone] Encounter Details Date Type Department Care Team Description 11/09/2022 Pt. Non Urgent Medical Question OBGYN - [address] [facility] [address] [place] [address] Nicolasa Naidu, [facility] [address] [place] [address] Social History Tobacco Use Types Packs/Day Years Used Date Smoking Tobacco: Some Days Cigarettes Last attempted to quit: 09/04/2021 Smokeless Tobacco: Never Comments:1/2 ppk/ dy Alcohol Use Standard Drinks/Week Comments [...] on filedocumented in this encounter Care Teams Video Camera Operator Relationship Specialty Start Date End Date Lillian Miguel MD PCP - General Internal Medicine 06/27/20 documented as of this encounter
--- OUTSIDE RECORDS SUMMARY | 2024-10-06 11:29 | XMS_ITS | Encounter Summary ---
Author Organization [facility] Address [address] [place] [address] Care Team Providers Care Internet Network Specialist Name Role Phone Lillian Miguel MD Primary Care Provider [phone] Reason for Visit * Reason Onset Date Comments Prior Authorization 09/28/2024 Encounter Details Date Type Department Care Team ([facility] st Contact Info) Description 09/28/2024 Telephone Gastroenterology - [place] [address] [place] [address] Lisette Escobedo PA [address] [place], [place] [phone] Prior Authorization Social History Tobacco Use Types Packs/Day Years Used Date Smoking Tobacco: Former Cigarettes Q uit: 05/10/2022 Smokeless Tobacco: Never Alcohol Use Standard Drinks/Week Comments No 0 (1 standard drink = 0.6 oz pur e alcohol) Housing Instability Answer Date Recorde d Are you worried that in the next 2 months you may not have stable housing? No 09/28/2024 Food Access & Nutrition Answer Date Rec orded Do you have access to a vari ety of food including fruits and vegetables? No 09/28/2024 Health Literacy Answer Date Recorded How often do you need to hav e someone help you when you read instructions, pamphlets, or other written material from your doctor or pharmacy? Never 09/28/2024 Caregiver: How often do you need to have someone help you when you read instructions, pamphlets, or other written material from your doctor or pharmacy? Not on file 09/28/2024 Financial Risk Answer Date Recorded How hard is it for you to pa y for the very basics like food, housing, medical care, and air conditioning / heating? Very hard 09/28/2024 Transportation Answer Date Recorded Has the lack of transportati on kept you from meetings, work, or from getting things needed for daily living? No Has the lack of transportati on kept you from medical appointments or from getting medications? No 09/28/2024 Social Isolation Answer Date Recorded How often do you feel lonely or isolated from those around you? Sometimes 09/28/2024 Food Risk Answer Date Recorded Within the past 12 months we worried whether our food would run out before we got money to buy more. Sometimes true 025 Within the past 12 months th e food we bought just didn't last and we didn't have money to get more. Sometimes true 09/28/2024 Dependent Care Answer Date Recorded Do you need help finding or paying for care for your loved ones. For example, director child abuse therapy or elderly care for an older adult? No 09/28/2024 Education Answer Date Recorded Do you think completing more education or training, like finishing a GED, going to college, or learning a trade, would be helpful for you? N/A 09/28/2024 Employment and Income Answer Date Recor ded During the last four weeks, have you been actively looking for work? No 09/28/2024 Living Situation Answer Date Recorded What is your living situation? 0 09/28/2024 Sex and Gender Information Value Date Recorded Sex Assigned at Female 09/24/2024 8:07 AM EST Gender Identity Female 09/24/2024 8:07 AM EST Sexual Orientation Straight 09/24/2024 8: 07 AM EST Job Start Date Occupation Industry Not on file Not on file Not on file documented as of this encounter Progress Notes * Gi Bullard [place] - 10/01/2024 11:00 AM EST Prior authorization for the mitchel was completed today on [facility] DX Code K75.81 TREVIZO * Gi Bullard [place] - 10/01/2024 10:19 AM EST Is the dx for this med fatty liver? Thank you Please reply back to [facility] (Prior Auth Pool) Gi Bauman [facility] Prior Authorization Ext [id number] * Paulina Young Hanson - 09/28/2024 4:15 PM EST Prior Authorization for Medication-do not complete and send this encounter unless you have the fax from the pharmacy. Is this a Cover My Meds request: YES [id number] Name of Medication resmetirom (Rezdiffra) Dose of Medication 80 mg tablet What is the RX # from the faxed refill? How does patient take this med? Take 80 mg by mouth 1 (one) time each day. What Pharmacy did the fax come from: [facility] fax #: [phone]. documented in this encounter Plan of Treatment Upcoming Encounters Date Type Department Care Team (Late st Contact Info) Description 10/15/2024 11:00 AM EST Office Visit [facility] Hematology Oncology [address] [place] [phone] Yuly Francis, [address] [place] [address] 11/23/2024 11:00 AM EDT Office Visit Gastroenterology - [place] 175 [facility] [address] [phone] Lisette Escobedo PA [address] [address] 01/04/2025 1:15 PM EDT Office Visit Pulmonolgy - [place] [address] [phone] Demetra Wheeler MD [address] [address] 01/08/2025 9:45 AM EDT Office Visit Obstetrics & Gynecology - [facility] [address] [place] [phone] Nicolasa Naidu, CNM [address] [place] [address] 03/10/2025 11:00 AM EDT Office Visit Internal Medicine - [place] [address] [phone] Lillian Miguel MD [address] [phone] documented as of this encounter Visit Diagnoses Not on filedocumented in this encounter Additional Health Concerns Assessment Noted Time PHQ-9 Depression Total Score: 8 09/28/19 25 12:26 PM EST documented as of this encounter Care Teams Internet Network Specialist Relationship Specialty Start Date End Date Lillian Miguel MD [address] [phone] PCP - General Internal Medicine 06/27/20 documented as of this encounter
--- OUTSIDE RECORDS SUMMARY | 2024-10-06 11:29 | XMS_ITS | Encounter Summary ---
Author Organization [facility] Address [address] [place] [address] Care Team Providers Care Patient Financial Services Manager Name Role Phone Lillian Miguel MD Primary Care Provider [phone] Encounter Details Date Type Department Care Team Description 10/06/2020 Orders Only Pulmonology - [place] 175 [facility] [address] [place] [address] eDmetra Wheeler MD [address] [place] [address] Pulmonary nodule Social History Tobacco Use Types Packs/Day Years Used Date Smoking Tobacco: Every Day Cigarettes Smokeless Tobacco: Never Comments:09/10 ppk/ dy Alcohol [...] Exposure Response Date Recorded In the last month, have you been in contact with someone who was confirmed or suspected to have Coronavirus / COVID-19? No / Unsure 09/29/2020 2:02 PM EST documented as of this encounter Plan of Treatment Not on file documented as of this encounter Procedures Procedure Name Priority Date/Time Associated Diagnosis Comments CAT SCANS OF CHEST W/WO CONTRAST Routine 10/04/19 21 Pulmonary nodule documented in this encounter Results * CHG DIAGNOSTIC COMPUTED TOMOGRAPHY THORAX C-/C+ (10/04/2020) Demetra Wheeler MD CT SCANS documented in this encounter Visit Diagnoses Diagnosis Pulmonary nodule Solitary pulmonary nodule documented in this encounter Care Teams Patient Financial Services Manager Relationship Specialty Start Date End Date Lillian Miguel MD PCP - General Internal Medicine 06/27/20 documented as of this encounter
--- OUTSIDE RECORDS SUMMARY | 2024-10-06 11:29 | XMS_ITS | Encounter Summary ---
Author Organization [facility] Address [address] [place] [address] Care Team Providers Care Tip Out Worker Name Role Phone Lillian Miguel MD Primary Care Provider [phone] Reason for Referral * Imaging (Routine) - Closed Specialty Diagnoses / Procedures Referred By Piter gilliam Referred To Contact Radiology Diagnoses Fatty liver Procedures IR Bx Ndl Liver Lisette Arora PA [address] [address] [facility] Interventional Radiology [address] [place] [phone] Referral ID Status Reason Start Date Expiration Date Visits Re quested Visits Authorized [id number] Closed 09/16/2024 09/16/2025 1 1 Reason for Visit * Imaging (Routine) - Closed Specialty Diagnoses / Procedures Referred By Piter gilliam Referred To Contact Radiology Diagnoses Fatty liver Procedures IR Bx Ndl Liver Lisette Arora PA [address] [address] [facility] Interventional Radiology [address] [place] [phone] Referral ID Status Reason Start Date Expiration Date Visits Re quested Visits Authorized [id number] Closed 09/16/2024 09/16/2025 1 1 Encounter Details Date Type Department Care Team (Latest Contact Info) Description 09/24/2024 8:09 AM EST - 09/24/2024 11:59 PM EST Hospital Encounter [facility] Interventional Radiology [address] [place] [address] Fatty liver Discharge Disposition: Home or Self Care Social History Tobacco Use Types Packs/Day Years [...] on file documented as of this encounter Last Filed Vital Signs Vital Sign Reading Time Taken Comments Blood Pressure 132/88 09/24/2024 1:30 PM EST Pulse 59 09/24/2024 1:30 PM EST Temperature 36.4 ??C (97.6 ??F) 09/24/2024 8:17 AM ES T Respiratory Rate 18 09/24/2024 8:17 AM EST Oxygen Saturation 98% 09/24/2024 1:30 PM EST Inhaled Oxygen Concentration - - Weight 90.7 kg (200 lb) 09/24/2024 8:17 AM EST Height 167.6 cm (5' 6 ) 09/24/2024 8:17 AM EST Body Mass Index 32.28 09/24/2024 8:17 AM EST documented in this encounter Discharge Instructions * Discharge Instructions* Porfirio Blake MD - 09/24/2024 9:35 AM EST Images from the original note were not included. Percutaneous Liver Biopsy: What to Expect at Home Your Recovery A needle biopsy of the liver is a procedure to take a tiny sample (biopsy) of your liver tissue. The tissue sample is looked at under a microscope. Your doctor can look for infection or other liver problems. You may have some pain where the biopsy needle entered your skin (the puncture site). You may also have pain in your shoulder. This is called referred pain. It is caused by pain traveling along a nerve near the biopsy site. The referred pain usually lasts less than 12 hours. You may have a small amount of bleeding from the puncture site. You can probably go home if you have no problems after the test. You will need to take it easy at home for 1 or 2 days after the procedure. You will probably be able to return to work and most of your usual activities after that. This care sheet gives you a general idea about how long it will take for you to recover. But each person recovers at a different pace. Follow the steps below to get better as quickly as possible. How can you care for yourself at home? Activity Rest when you feel tired. Getting enough sleep will help you recover. Try to walk each day. Start by walking a little more than you did the day before. Bit by bit, increase the amount you walk. Walking boosts blood flow and helps prevent pneumonia and constipation. Avoid exercises that use your belly muscles and strenuous activities, such as bicycle riding, jogging, weight lifting, or aerobic exercise, for 1 week or until your doctor says it is okay. Ask your doctor when you can drive again. You will probably need to take 1 or 2 days off from work. It depends on the type of work you do andhow you feel. You will probably be able to shower the same day as the test, if your doctor says it is okay. Pat the puncture site dry. Do not take a bath for at least 2 days after the test, or until your doctor tells you it is okay. Diet You can eat your normal diet. If your stomach is upset, try bland, low-fat foods like plain rice, broiled chicken, toast, and yogurt. Drink plenty of fluids (unless your doctor tells you not to). Medicines Your doctor will tell you if and when you can restart your medicines. He or she will also give you instructions about taking any new medicines. If you stopped taking aspirin or some other blood thinner, your doctor will tell you when to start taking it again. Be safe with medicines. Take pain medicines exactly as directed. If the doctor gave you a prescription medicine for pain, take it as prescribed. If you are not taking a prescription pain medicine, take an oibw-fwy-esepqrx medicine that your doctor recommends. Read and follow all instructions on the label. Do not take aspirin, ibuprofen (Advil, Motrin), naproxen (Aleve), or other nonsteroidal anti-inflammatory drugs (NSAIDs) unless your doctor says it is okay. If you think your pain medicine is making you sick to your stomach: Take your medicine after meals (unless your doctor has told you not to). Ask your doctor for a different kind of pain medicine. Care of the puncture site Keep a bandage over the puncture site for the first 1 or 2 days. Follow-up care is a esteves part of your treatment and safety. Be sure to make and go to all appointments, and call your doctor if you are having problems. It's also a good idea to know your test resultsand keep a list of the medicines you take. When should you call for help? Call 911 anytime you think you may need emergency care. For example, call if: You passed out (lost consciousness). You have severe trouble breathing. You have sudden chest pain and shortness of breath, or you cough up blood. You have severe pain in your chest, shoulder, or belly. Call your doctor now or seek immediate medical care if: You have new or worse shortness of breath. Bright red blood has soaked through the bandage over the puncture site. You have pain that does not get better after you take your pain medicine. You are sick to your stomach or cannot keep fluids down. You have a fever, chills, or body aches. You have signs of infection, such as: Increased pain, swelling, warmth, or redness. Red streaks leading from the puncture site. Pus draining from the puncture site. A fever. You have new or worse pain at the puncture site. You have new or worse belly swelling or bloating. You have trouble passing urine or stool. Your stools are black and tarlike or have streaks of blood. You have pale-colored stools along with dark urine and itching. Watch closely for changes in your health, and be sure to contact your doctor if you have any problems. Where can you learn more? Scan the [employer] code or Go to [email or web address]://[email or web address].Viewpoints.net/shimonchart Enter F066 in the search box to learn more about Percutaneous Liver Biopsy: What to Expect at Home. Current as of: April 03, 2023 Content Version: 14.2 ?? 2023 [facility] [employer]. Care instructions adapted under license by your healthcare professional. If you have questions about a medical condition or this instruction, always ask your healthcare professional. [employer] disclaims any warranty or liability for your use of this information. documented in this encounter Medications at Time of Discharge Medication Sig Dispensed Refills Start Date End Date cholecalciferol (VITAMIN D-3) 50 mcg (2,000 unit) tablet Take 1 tablet (2,000 Units total) by mouth 1 (one) time each day. 10/02/2023 famotidine (PEPCID) 40 mg tablet TAKE 1 TABLET BY MOUTH AT BEDTIME 90 tablet 1 09/20/2024 fluticasone-salmeterol (ADVAIR DISKUS) 250-50 mcg/dose diskus inhaler Inhale 1 puff by mouth. 02/06/2024 pantoprazole (PROTONIX) 40 mg EC tablet TAKE 1 TABLET BY MOUTH DAILY 90 tablet 1 09/08/2024 albuterol HFA (PROAIR HFA ; PROVENTIL HFA ; VENTOLIN HFA) 90 mcg/actuation inhaler Inhale 2 puffs by mouth Every 4 hours as needed. cyanocobalamin (VITAMIN B-12) 1,000 mcg/mL injection Inject 1 mL (1,000 mcg total) into the shoulder, thigh, or buttocks. documented as of this encounter Discharge Disposition Disposition Code Departure Means Destination Home or Self Care documented in this encounter Procedure Notes * Porfirio Blake MD - 09/24/2024 9:33 AM EST Interventional Radiology Preprocedure Note: Patient Name: Анна Rojas Procedure Date: Today Indication for procedure: The encounter diagnosis was Fatty liver. Planned Procedure: Please see associated order History and Physical Update ( H&P completed within the previous thirty days ) I personally reviewed the History and Physical, interviewed and examined the patient prior to surgery. No changes have occurred in the patient's condition since the History and Physical was completed. Allergies: Allergies Allergen Reactions Sulfa (Sulfonamide Antibiotics) Anaphylaxis Sulfamethoxazole-Trimethoprim Anaphylaxis Cyclobenzaprine Hives Hydroxychloroquine Hives Tramadol Nausea And Vomiting Hydrochlorothiazide Hives Past Medical History: Past Medical History: Diagnosis Date Alopecia 08/24/2020 DX:Alopecia Anxiety and depression 08/24/2020 DX:Anxiety and depression Asthma 08/24/2020 DX:Asthma Rodriguez's esophagus 08/24/2020 DX:Rodriguez's esophagus Carpal tunnel syndrome 08/24/2020 DX:Carpal tunnel syndrome Cholelithiasis 08/24/2020 DX:Cholelithiasis; COMMENT: 06/27/2016 CT Chronic pain of toes of both feet 08/24/2020 DX:Chronic pain of toes of both feet Complex ovarian cyst 08/24/2020 DX:Complex ovarian cyst COPD (chronic obstructive pulmonary disease) ([facility]/HCC) 08/24/2020 DX:COPD (chronic obstructive pulmonary disease) ([facility]) DDD (degenerative disc disease), cervical 08/24/2020 DX:DDD (degenerative disc disease), cervical DJD (degenerative joint disease) 08/24/2020 DX:DJD (degenerative joint disease); COMMENT: Thoracic spine Extensive tattoos DX:Extensive tattoos Genital herpes 08/24/2020 DX:Genital herpes GERD (gastroesophageal reflux disease) 08/24/2020 DX:GERD (gastroesophageal reflux disease) History of 2019 novel coronavirus disease (COVID-19) 08/2021 DX:History of 2019 novel coronavirus disease (COVID-19) History of cellulitis 08/24/2020 DX:History of cellulitis; COMMENT: LUE Hx of tear of ACL (anterior cruciate ligament) 08/24/2020 DX:Hx of tear of ACL (anterior cruciate ligament); COMMENT: Left knee Insomnia 08/24/2020 DX:Insomnia Leukocytosis 09/16/2020 DX:Leukocytosis; COMMENT: Fluctuating dating back to at least 2010. Mild fluctuating lymphocytosis as well. Mediastinal lymphadenopathy 08/24/2020 DX:Mediastinal lymphadenopathy Peripheral neuropathy 08/24/2020 DX:Peripheral neuropathy Prediabetes 08/24/2020 DX:Prediabetes Pulmonary nodules 08/24/2020 DX:Pulmonary nodules Thyroid nodule 08/24/2020 DX:Thyroid nodule Tobacco use 08/24/2020 DX:Tobacco use Vitamin B12 deficiency 08/24/2020 DX:Vitamin B12 deficiency Vitamin D deficiency 08/24/2020 DX:Vitamin D deficiency Surgical History: Past Surgical History: Procedure Laterality Date SECTION PROCEDURE: HISTORICAL DELIVERY; COMMENT: X3 EYE SURGERY PROCEDURE: HISTORICAL EYE SURGERY OTHER SURGICAL HISTORY PROCEDURE: HISTORY OTHER; COMMENT: axillary lympadenopathy OTHER SURGICAL HISTORY 2010 PROCEDURE: [place] HYSTEROSCOPY ENDOMETRIAL ABLATION OTHER SURGICAL HISTORY PROCEDURE: ARTHROSCOPY PROCEDURE NEC; COMMENT: Knee TUBAL LIGATION 2005 PROCEDURE: HISTORICAL TUBAL LIGATION UPPER GASTROINTESTINAL ENDOSCOPY 02/27/2020 PROCEDURE: UPPER GI ENDOSCOPY/EXAM; COMMENT: Rodriguez's esophagus, gastritis. Social History: Social History Socioeconomic History Marital status: Single Spouse name: Not on file Number of children: Not on file Years of education: Not on file Highest education level: Not on file Occupational History Not on file Tobacco Use Smoking status: Former Current packs/day: 0.00 Types: Cigarettes Quit date: 05/10/2022 Years since quittin.3 Smokeless tobacco: Never Substance and Sexual Activity Alcohol use: No Drug use: Not Currently Types: Marijuana/Cannabis Sexual activity: Not on file Comment: 2021 x 25yrs, neg dv Other Topics Concern Not on file Social History Narrative Not on file Medications: Current Outpatient Medications on File Prior to Encounter Medication Sig Dispense Refill cholecalciferol (VITAMIN D-3) 50 mcg (2,000 unit) tablet Take 1 tablet (2,000 Units total) by mouth1 (one) time each day. famotidine (PEPCID) 40 mg tablet TAKE 1 TABLET BY MOUTH AT BEDTIME 90 tablet 1 fluticasone-salmeterol (ADVAIR DISKUS) 250-50 mcg/dose diskus inhaler Inhale 1 puff by mouth. pantoprazole (PROTONIX) 40 mg EC tablet TAKE 1 TABLET BY MOUTH DAILY 90 tablet 1 albuterol HFA (PROAIR HFA ; PROVENTIL HFA ; VENTOLIN HFA) 90 mcg/actuation inhaler Inhale 2 puffs by mouth Every 4 hours as needed. cyanocobalamin (VITAMIN B-12) 1,000 mcg/mL injection Inject 1 mL (1,000 mcg total) into the shoulder, thigh, or buttocks. [DISCONTINUED] betamethasone dipropionate (DIPROSONE) 0.05 % cream (Patient not taking: Reported on08/25/2024) [DISCONTINUED] famotidine (PEPCID) 40 mg tablet Take 1 tablet (40 mg total) by mouth. [DISCONTINUED] metoclopramide (REGLAN) 5 mg tablet Take 1 tablet (5 mg total) by mouth. (Patient not taking: Reported on 08/25/2024) [DISCONTINUED] varenicline (CHANTIX ADAIR) 0.5 mg (11)- 1 mg (42) tablet Take 1 tablet by mouth. (Patient not taking: Reported on 08/25/2024) No current facility-administered medications on file prior to encounter. Directed physical examination: Visit Vitals BP (!) 151/86 Pulse 74 Temp 36.4 ??C (97.6 ??F) Resp 18 HEENT Assessment: Airway patent Cardiovascular Assessment: Monitored rhythm observed. Adequate pulses. Pulmonary Assessment: NARD Abdomen: Soft NT Musculoskeletal Assessment: At baseline Mallampati: 3 ASA Score: 1 Relevant Labs: Lab Results Component Value Date CREATININE 0.88 08/25/2024 EGFR 81 08/25/2024 Immediate reassessment prior to sedation: Unchanged from baseline The patient or designee has a signed a consent that is available in the patient record. Porfirio Blake MD * Leonides Carter RN - 09/24/2024 9:00 AM EST Discharge instructions given and reviewed documented in this encounter Plan of Treatment Upcoming Encounters Date Type Department Care Team (Late st Contact Info) Description 10/15/2024 11:00 AM EST Office Visit [facility] Hematology Oncology [address] [place] [phone] Yuly Francis DO [address] [place] [address] 11/23/2024 11:00 AM EDT Office Visit Gastroenterology - [place] 175 [facility] [address] [phone] Lisette Escobedo PA [address] [address] 01/04/2025 1:15 PM EDT Office Visit Pulmonolgy - [place] [address] [phone] Demetra Wheeler MD [address] [address] 01/08/2025 9:45 AM EDT Office Visit Obstetrics & Gynecology - [facility] [address] [place] [phone] Nicolasa Naidu, CNM [address] [place] [address] 03/10/2025 11:00 AM EDT Office Visit Internal Medicine - [place] [address] [phone] Lillian Miguel MD [address] [phone] Scheduled Orders Name Type Priority Associated Diagnoses Orde r Schedule IR Bx Ndl Liver Perc Imaging Routine Fatty liver Once for 1 Occurrences starting 09/24/2024 until 09/24/2024 documented as of this encounter Visit Diagnoses Diagnosis Fatty liver Other chronic nonalcoholic liver disease documented in this encounter Administered Medications Inactive Administered Medications - up to 3 most recent administrations Medication Order MAR Action Action Date Dose Rate Site fentaNYL (PF) (SUBLIMAZE) injection intravenous, As needed, Starting on Lucy 09/24/24 at 0930, Intraprocedure Given 09/24/2024 9:52 AM EST 25 mcg Given 09/24/2024 9:30 AM EST 50 mcg midazolam (VERSED) injection intravenous, As needed, Starting on Lucy 09/24/24 at 0930, Intraprocedure Given 09/24/2024 9:52 AM EST 0.5 mg Given 09/24/2024 9:30 AM EST 1 mg sodium chloride 0.9 % bolus Administer over 1 Hours, Continuous PRN, Starting on Lucy 09/24/24 at 0954, Intraprocedure New Bag 09/24/2024 9:54 AM EST 100 mL 500 mL/hr documented in this encounter Discontinued Medications Medication Sig Discontinue Reason Start Date End Da te betamethasone dipropionate (DIPROSONE) 0.05 % cream 02/19/2024 09/24/2024 metoclopramide (REGLAN) 5 mg tablet Take 1 tablet (5 mg total) by mouth. 12/10/2023 09/24/2024 varenicline (CHANTIX ADAIR) 0.5 mg (11)- 1 mg (42) tablet Take 1 tablet by mouth. 05/04/2024 09/24/2024 documented as of this encounter Orders Discharge Count Last Ordered Date First Orde red Date DISCHARGE PATIENT 1 09/24/2024 documented in this encounter Care Teams Tip Out Worker Relationship Specialty Start Date End Date Lillian Miguel MD [address] [phone] PCP - General Internal Medicine 06/27/20 documented as of this encounter
--- OUTSIDE RECORDS SUMMARY | 2024-10-06 11:29 | XMS_ITS | Encounter Summary ---
Author Organization [facility] Address [address] [place] [address] Care Team Providers Care Maintenance Advisor Name Role Phone Lillian Miguel MD Primary Care Provider [phone] Encounter Details Date Type Department Care Team Description 01/17/2023 Hospital Medical Records [address] [place] [address] Allie Downing MD [address] [place] [address] Social History Tobacco Use Types Packs/Day Years Used Date Smoking Tobacco: Former Cigarettes Q uit: 05/10/2022 Smokeless Tobacco: Never Comments:Quit april Alcohol Use Standard Drinks/Week Comments No 0 [...] suspected to have Coronavirus/COVID-19? No / Unsure 01/14/2023 10:07 AM EDT documented as of this encounter Plan of Treatment Not on file documented as of this encounter Visit Diagnoses Not on filedocumented in this encounter Care Teams Maintenance Advisor Relationship Specialty Start Date End Date Lillian Miguel MD PCP - General Internal Medicine 06/27/20 documented as of this encounter
--- OUTSIDE RECORDS SUMMARY | 2024-10-06 11:29 | XMS_ITS | Encounter Summary ---
Author Organization [facility] Address [address] [place] [address] Care Team Providers Care Inspector Watch Parts Name Role Phone Lillian Miguel MD Primary Care Provider [phone] Encounter Details Date Type Department Care Team Description 02/27/2020 Hospital Medical Records [address] [place] [address] Abstract, Provider Social History Tobacco Use Types Packs/Day Years [...] on file documented as of this encounter Plan of Treatment Not on file documented as of this encounter Visit Diagnoses Not on filedocumented in this encounter Care Teams Inspector Watch Parts Relationship Specialty Start Date End Date Lillian Miguel MD PCP - General Internal Medicine 06/27/20 documented as of this encounter
--- OUTSIDE RECORDS SUMMARY | 2024-10-06 11:29 | XMS_ITS | Encounter Summary ---
Author Organization [facility] Address [address] [place] [address] Care Team Providers Care Termite Helper Name Role Phone Lillian Miguel MD Primary Care Provider [phone] Reason for Visit * Reason Onset Date Comments Medication 03/31/2024 Encounter Details Date Type Department Care Team Description 03/31/2024 Refill Gastroenterology - [place] 175 [facility] [address] [place] [phone] Porfirio Steward MD 175 [facility] [address] [place] [address] Medication Social History Tobacco Use Types Packs/Day Years [...] on filedocumented in this encounter Care Teams Termite Helper Relationship Specialty Start Date End Date Lillian Miguel MD PCP - General Internal Medicine 06/27/20 documented as of this encounter
--- OUTSIDE RECORDS SUMMARY | 2024-10-06 11:29 | XMS_ITS | Encounter Summary ---
Author Organization [facility] Address [address] [place] [address] Care Team Providers Care Work Manager Name Role Phone Lillian Miguel MD Primary Care Provider [phone] Reason for Referral * Imaging (Routine) - Closed Specialty Diagnoses / Procedures Referred By Piter gilliam Referred To Contact Radiology Diagnoses Fatty liver Procedures US Bx Ndl Liver Perc Lisette Escobedo PA [address] [phone] Referral ID Status Reason Start Date Expiration Date Visits Re quested Visits Authorized [id number] Closed 09/16/2024 09/16/2025 1 1 Reason for Visit * Imaging (Routine) - Closed Specialty Diagnoses / Procedures Referred By Piter gilliam Referred To Contact Radiology Diagnoses Fatty liver Procedures US Bx Ndl Liver Perc Lisette Escobedo PA [address] [address] Referral ID Status Reason Start Date Expiration Date Visits Re quested Visits Authorized [id number] Closed 09/16/2024 09/16/2025 1 1 Encounter Details Date Type Department Care Team (Latest Contact Info) Description 09/24/2024 8:49 AM EST - 09/24/2024 11:59 PM EST Hospital Encounter [facility] Ultrasound [address] [place] [address] Fatty liver Discharge Disposition: Home [...] on file documented as of this encounter Medications at Time of Discharge Medication Sig Dispensed Refills Start Date End Date albuterol HFA (PROAIR HFA ; PROVENTIL HFA ; VENTOLIN HFA) 90 mcg/actuation inhaler Inhale 2 puffs by mouth Every 4 hours as needed. cholecalciferol (VITAMIN D-3) 50 mcg (2,000 unit) tablet Take 1 tablet (2,000 Units total) by mouth 1 (one) time each day. 10/02/2023 cyanocobalamin (VITAMIN B-12) 1,000 mcg/mL injection Inject 1 mL (1,000 mcg total) into the shoulder, thigh, or buttocks. famotidine (PEPCID) 40 mg tablet TAKE 1 TABLET BY MOUTH AT BEDTIME 90 tablet 1 09/20/2024 fluticasone-salmeterol (ADVAIR DISKUS) 250-50 mcg/dose diskus inhaler Inhale 1 puff by mouth. 02/06/2024 pantoprazole (PROTONIX) 40 mg EC tablet TAKE 1 TABLET BY MOUTH DAILY 90 tablet 1 09/08/2024 documented as of this encounter Discharge Disposition Disposition Code Departure Means Destination Home or Self Care documented in this encounter Progress Notes * KAUR Jung - 09/24/2024 9:00 AM EST I will send msg. * Leticia Gallego MA - 09/24/2024 9:00 AM EST Seen by patient Анна Rojas on 09/28/2024 ??3:23 PM documented in this encounter Plan of Treatment Upcoming Encounters Date Type Department Care Team (Late st Contact Info) Description 10/15/2024 11:00 AM EST Office Visit [facility] Hematology Oncology [address] [place] [phone] Yuly Francis, [address] [place] [address] 11/23/2024 11:00 AM EDT Office Visit Gastroenterology - [address] [phone] Lisette Escobedo PA [address] [place] [address] 01/04/2025 1:15 PM EDT Office Visit Pulmonolgy - [address] [phone] Demetra Wheeler MD [address] [address] 01/08/2025 9:45 AM EDT Office Visit Obstetrics & Gynecology - [address] [phone] Nicolasa Naidu, [facility] [address] [place] [address] 03/10/2025 11:00 AM EDT Office Visit Internal Medicine - [address] [phone] Lillian Miguel MD [address] [place] [phone] documented as of this encounter Procedures Procedure Name Priority Date/Time Associated Diagnosis Comments TISSUE EXAM Routine 09/24/2024 10:16 AM EST Fatty liver US BX NDL LIVER PERC Routine 09/24/2024 10:14 AM EST Fatty liver documented in this encounter Results * Tissue exam (09/24/2024 10:16 AM EST) Final Diagnosis A. Liver, Biopsy (medical): Steatohepatitis with mild pericellular fibrosis (Stage 1 fibrosis) See note and comment Note: The findings are consistent with nonalcoholic steatohepatitis in the appropriate clinical setting. (CRN-GARCIA: 1+2+2= 5/8 ) An interface hepatitis or plasma cell rich aggregates or other histologic signs of an Autoimmune hepatitis are not identified. Bile ducts appear unremarkable. Slides are reviewed and interpreted at [facility] 12:46 PM [facility] Comment Sections show multiple liver cores with approximately 18 portal tracts with normal architecture. There is moderate predominantly large droplet steatosis (30%), lobular inflammation 2-4 foci/200x and many cells with prominent ballooning degeneration. Nesha denk bodies are not identified. [place] Bile ducts are unremarkable. Mild portal inflammation but Interface hepatitis is not identified. Special stains: Trichrome: Mild pericellular fibrosis (Stage 1 fibrosis) Iron: No stainable iron PAS-D: Negative for intracytoplasmic hyaline globules 12:46 PM [facility] Gross Description A. Liver, Random Cores: Labeled random liver cores . Received in formalin are three velásquez-brown soft tissue cores, each measuring approximately 1.6 x 0.1 cm, which are wrapped in paper and submitted in toto in one cassette, three pieces, multiple levels on one slide, three pieces, x 3. KAYE 12:46 PM [facility] Disclaimer Unless otherwise specified, all tissue is 10% NB formalin fixed and paraffin embedded. NOTE: The immunohistochemical tests and in situ hybridization tests were developed and their performance characteristics were determined by [facility]. They have not been cleared or approved by the U.S. Food and Drug Administration. The FDA has determined that such clearance or approval is not necessary. These tests are used for clinical purposes. They should not be regarded as investigational or for research. This laboratory is certified under the Clinical Laboratory Improvement Amendments of 1988 (CLIA) as qualified to perform high complexity clinical laboratory testing. (controls appropriate) 12:46 PM EST [facility] Tissue Liver structure / Unknown 09/24/2024 10:16 AM EST 09/24/2024 10:35 AM EST Lisette [facility] PATHOLOGY ORDERA JOCELYNES [facility] [address] [place] [address], * US Bx Ndl Liver Perc (09/24/2024 10:14 AM EST) Anatomical Region Laterality Modality Body Ultrasound 09/24/2024 2:10 PM EST Narrative 09/24/2024 2:10 PM EST Ultrasound-guided liver biopsy INDICATION: Liver biopsy will be helpful to determine the stage of her liver cirrhosis to see if she is a candidate for liver transplant CONCLUSION: Successful ultrasound guided biopsy. ?? REFINERY OPERATOR REFORMING UNIT(S): Porfirio Blake MD ANESTHESIA: 2% lidocaine, Fentanyl and Versed TECHNIQUE: Informed written consent obtained. ??Patient brought to the ultrasound suite. ??The liver was assessed with ultrasound and images were saved to PACS. ??The overlying skin was then prepped and draped usual sterile fashion. ??A timeout was then performed. 2% lidocaine used for skin anesthesia. ?? Moderate sedation: Under direct physician supervision, the patient was moderately sedated with ??50 mcg FENTANYL and one mg VERSED IV for a total of 20 minutes. An independent interventional radiology nurse observer trained in conscious sedation provided continuous physiologic monitoring of the patient during the entirety of the procedure through recovery. Small stab incision made with a #11 blade scalpel. ??A 17-gauge introducer needle was advanced into the liver under continuous ultrasound guidance. ??Following this 18-gauge biopsy needle was utilized to obtain a biopsy specimen. ?? This was repeated a total 3 times. ??Biopsy specimens were placed in formalin. A Gelfoam slurry was created and injected and the needle tract external to the liver. ??The introducer needle was removed and hemostasis was achieved. ??A sterile dressing was then applied. Subsequent ultrasound demonstrates no immediate complications. ?? Patient discharged to the recovery unit in stable condition. ?? PLAN: Routine post procedure monitoring. -------- FINAL REPORT -------- Dictated By: Porfirio Blake Dictated Date: 09/24/2024 14:10 ET Assigned Physician: Porfirio Blake Reviewed and Electronically Signed By: Porfirio Blake Signed Date: 09/24/2024 14:10 ET Workstation ID: [id number] Transcribed By: Self Edit Transcribed Date: 09/24/2024 14:10 ET Procedure Note Porfirio Blake MD - 09/24/2024 Ultrasound-guided liver biopsy INDICATION: Liver biopsy will be helpful to determine the stage of herliver cirrhosis to see if she is a candidate for liver transplant CONCLUSION: Successful ultrasound guided biopsy. REFINERY OPERATOR REFORMING UNIT(S): Porfirio Blake MD ANESTHESIA: 2% lidocaine, Fentanyl and Versed TECHNIQUE: Informed written consent obtained. Patient brought to theultrasound suite. The liver was assessed with ultrasound and images weresaved to PACS. The overlying skin was then prepped and draped usualsterile fashion. A timeout was then performed. 2% lidocaine used for skin anesthesia. Moderate sedation: Under direct physician supervision, the patient wasmoderately sedated with 50 mcg FENTANYL and one mg VERSED IV for a totalof 20 minutes. An independent interventional radiology nurse observertrained in conscious sedation provided continuous physiologic monitoringof the patient during the entirety of the procedure through recovery. Small stab incision made with a #11 blade scalpel. A 17-gauge introducerneedle was advanced into the liver under continuous ultrasound guidance.Following this 18- gauge biopsy needle was utilized to obtain a biopsyspecimen. This was repeated a total 3 times. Biopsy specimens wereplaced in formalin. A Gelfoam slurry was created and injected and the needle tract external tothe liver. The introducer needle was removed and hemostasis was achieved.A sterile dressing was then applied. Subsequent ultrasound demonstrates no immediate complications. Patient discharged to the recovery unit in stable condition. PLAN: Routine post procedure monitoring. -------- FINAL REPORT -------- Dictated By: Porfirio Blake Dictated Date: 09/24/2024 14:10 ET Assigned Physician: Porfirio Blake Reviewed and Electronically Signed By: Porfirio Blake Signed Date: 09/24/2024 14:10 ET Workstation ID: [id number] Transcribed By: Self Edit Transcribed Date: 09/24/2024 14:10 ET Lisette [facility] IMG US PROCEDURES documented in this encounter Visit Diagnoses Diagnosis Fatty liver Other chronic nonalcoholic liver disease documented in this encounter Administered Medications Inactive Administered Medications - up to 3 most recent administrations Medication Order MAR Action Action Date Dose Rate Site lidocaine (XYLOCAINE) 1 % injection 5 mL 5 mL, injection, Once in imaging, Starting on Lucy 09/24/24 at 1014, For 1 dose Given 09/24/2024 10:15 AM EST 5 mL documented in this encounter Orders Medications Ordered That Crow ht Not Have Been Administered Count Last Ordered Date First Ordered Date lidocaine (XYLOCAINE) 1 % injection 5 mL 1 09/24/2024 documented in this encounter Care Teams Work Manager Relationship Specialty Start Date End Date Lillian Miguel MD [address] [place] [phone] PCP - General Internal Medicine 06/27/20 documented as of this encounter
--- OUTSIDE RECORDS SUMMARY | 2024-10-06 11:29 | XMS_ITS | Encounter Summary ---
Author Organization [facility] Address [address] [place] [address] Care Team Providers Care Vp Respiratory Name Role Phone Lillian Miguel MD Primary Care Provider [phone] Encounter Details Date Type Department Care Team Description 02/03/2016 Hospital Medical Records [address] [place] [address] Abstract, Provider Social History Tobacco Use Types [...] on filedocumented in this encounter Care Teams Vp Respiratory Relationship Specialty Start Date End Date Lillian Miguel MD PCP - General Internal Medicine 06/27/20 documented as of this encounter
--- OUTSIDE RECORDS SUMMARY | 2024-10-06 11:29 | XMS_ITS | Encounter Summary ---
Author Organization [facility] Address [address] [place] [address] Care Team Providers Care Parts Control Clerk Name Role Phone Lillian Miguel MD Primary Care Provider [phone] Encounter Details Date Type Department Care Team Description 08/30/2020 Release of Information Medical Records [address] [place] [address] Abstract, Provider Social History Tobacco Use Types Packs/Day Years Used Date Smoking Tobacco: Every Day Smokeless Tobacco: Never Alcohol Use Standard Drinks/Week [...] have Coronavirus / COVID-19? No / Unsure 08/26/2020 2:07 PM EST documented as of this encounter Plan of Treatment Not on file documented as of this encounter Visit Diagnoses Not on filedocumented in this encounter Care Teams Parts Control Clerk Relationship Specialty Start Date End Date Lillian Miguel MD PCP - General Internal Medicine 06/27/20 documented as of this encounter
--- OUTSIDE RECORDS SUMMARY | 2024-10-06 11:29 | XMS_ITS | Encounter Summary ---
Author Organization [facility] Address [address] [place] [address] Care Team Providers Care Tmr Teacher Name Role Phone Lillian Miguel MD Primary Care Provider [phone] Encounter Details Date Type Department Care Team Description 04/11/2020 Heart Surgeon Report Medical Records [address] [place] [address] Abstract, Provider Social History Tobacco Use Types Packs/Day Years Used Date Smoking Tobacco: Never Assessed Alcohol Habits Answer Date Recorded How often [...] on filedocumented in this encounter Care Teams Tmr Teacher Relationship Specialty Start Date End Date Lillian Miguel MD PCP - General Internal Medicine 06/27/20 documented as of this encounter
--- OUTSIDE RECORDS SUMMARY | 2024-10-06 11:29 | XMS_ITS | Clinical Summary ---
Author Organization [facility] Address [address] [place] [address] Care Team Providers Care Development Eng Name Role Phone Lillian Miguel MD Primary Care Provider [phone] Allergies Active Allergy Reactions Criticality Noted Date Comments Sulfamethoxazole-Trimethoprim 2020 Cyclobenzaprine 09/26/2020 Hydrochlorothiazide 09/26/2020 Hydroxychloroquine 09/26/2020 Sulfa Antibiotics 09/26/2020 Tramadol 09/26/2020 Medications Medication Sig Dispensed Refills Start Date End Date Status cyanocobalamin (VITAMIN B12) 1000 MCG/ML injection Inject 1,000 mcg into the muscle every 30 (thirty) days. 0 Active pantoprazole (PROTONIX) 40 MG tablet Take 40 mg by mouth every morning on an empty stomach. 0 Active albuterol (PROVENTIL HFA;VENTOLIN HFA) 108 (90 Base) MCG/ACT inhaler Inhale 2 puffs into the lungs every 4 (four) hours as needed for wheezing. 0 Active Fluticasone-Salmeterol (ADVAIR DISKUS IN) Inhale into the lungs. 0 Active Active Problems Problem Noted Date Diagnosed Date Lymphocytosis 10/19/2021 Lr-Hollywood bodies on peripheral blood smear Hyposplenism 04/23/2021 Neutrophilic leukocytosis 10/22/2020 Anxiety and depression 08/24/2020 Asthma 08/24/2020 GERD (gastroesophageal reflux disease) 0 Carpal tunnel syndrome 08/24/2020 Cholelithiasis 08/24/2020 Overview: Overview: 06/27/2016 CT Complex ovarian cyst 08/24/2020 COPD (chronic obstructive pulmonary disease) DJD (degenerative joint disease) 08/24/2020 Overview: Overview: Thoracic spine Genital herpes 08/24/2020 DDD (degenerative disc disease), cervical 2019 Mediastinal lymphadenopathy 08/24/2020 Peripheral neuropathy 08/24/2020 Left upper lobe pulmonary nodule 08/24/2020 Thyroid nodule 08/24/2020 Vitamin B12 deficiency 08/24/2020 Vitamin D deficiency 08/24/2020 Family History Medical History Relation Name Comments Cancer Mother Relation Name Status Comments Mother Social History Tobacco Use Types Packs/Day Years Used Date Smoking Tobacco: Every Day Smokeless Tobacco: Never Alcohol Use Standard Drinks/Week Comments No 0 (1 standard drink = 0.6 oz pur e alcohol) Sex and Gender Information Value Date Recorded Sex Assigned at Not on file Gender Identity Not on file Sexual Orientation Not on file Job Start Date Occupation Industry Not on file Not on file Not on file Last Filed Vital Signs Vital Sign Reading Time Taken Comments Blood Pressure 124/68 05/31/2022 9:51 AM EDT Pulse 71 05/31/2022 9:51 AM EDT Temperature 36.3 ??C (97.3 ??F) 05/31/2022 9:51 AM ED T Respiratory Rate - - Oxygen Saturation 99% 05/31/2022 9:51 AM EDT Inhaled Oxygen Concentration - - Weight 92.1 kg (203 lb) 05/31/2022 9:51 AM EDT Height 170.2 cm (5' 7 ) 05/31/2022 9:51 AM EDT Body Mass Index 31.79 05/31/2022 9:51 AM EDT Plan of Treatment Health Maintenance Due Date Last Done Comments Hepatitis B Vaccines (1 of 3 - 3-dose series) 1976 Hepatitis C Screening 1976 Depression Screening 1988 Preventative Health Evaluation 1994 Tobacco Cessation Counseling 1994 Cervical Cancer Screening (Pap Smear) 1997 DTap / Tdap / Td (2 - Td or Tdap) 10/12/2018 10/12/2008 Pneumococcal Vaccine (2 of 2 - PPSV23 or PCV20) 10/05/2019 08/10/2019 Colon Cancer Screening (Colonoscopy) 2021 COVID-19 Vaccine (4 - 2023-2 5 season) 2024 08/16/2021, 01/03/2021, 12/13/2020 Influenza Vaccine (#1) 2024 RSV Ped < 20 months Aged Out No longe r eligible based on patient's age to complete this topic Care Teams Development Eng Relationship Specialty Start Date End Date Lillian Miguel MD 175 [facility] [address] [place] [address] PCP - General Internal Medicine 08/30/20
--- OUTSIDE RECORDS SUMMARY | 2024-10-06 11:29 | XMS_ITS | Encounter Summary ---
Author Organization [facility] Address [address] [place] [address] Care Team Providers Care Legal Support Assistant Name Role Phone Lillian Miguel MD Primary Care Provider [phone] Encounter Details Date Type Department Care Team Description 04/29/2024 Pt. Non Urgent Medical Question Internal Medicine - [address], [address] [place] [address] Lillian Miguel MD [address] [place] [phone] Social History Tobacco Use Types Packs/Day [...] on filedocumented in this encounter Care Teams Legal Support Assistant Relationship Specialty Start Date End Date Lillian Miguel MD PCP - General Internal Medicine 06/27/20 documented as of this encounter
--- OUTSIDE RECORDS SUMMARY | 2024-10-06 11:29 | XMS_ITS | Encounter Summary ---
Author Organization [facility] Address [address] [place] [address] Care Team Providers Care Sensitized Paper Tester Name Role Phone Lillian Miguel MD Primary Care Provider [phone] Reason for Visit * Reason Comments Follow-up Encounter Details Date Type Department Care Team (Latest Contact Info) Description 10/05/2024 9:30 AM EST Office Visit Internal Medicine - [place] 175 [facility] [address] [place] [phone] Lillian Miguel MD 175 [facility] [address] [place] [address] Vitamin B12 deficiency (Primary Dx); Vitamin D deficiency; BERNARDA positive; Lr-Beloit bodies on peripheral blood smear; Mediastinal lymphadenopathy Social History Tobacco Use Types Packs/Day Years Used Date Smoking Tobacco: Every Day Cigarettes Last attempted to quit: 05/10/2022 Smokeless Tobacco: Never Tobacco Cessation:Counseling Given: Not Answered Alcohol Use Standard Drinks/Week Comments No 0 [...] care for your loved ones. For example, child welfare caseworker or elderly care for an older adult? [...] Sign Reading Time Taken Comments Blood Pressure 122/62 10/05/2024 9:47 AM EST Pulse 73 10/05/2024 9:47 AM EST Temperature 36.3 ??C (97.3 ??F) 10/05/2024 9:47 AM ES T Respiratory Rate - - Oxygen Saturation 98% 10/05/2024 9:47 AM EST Inhaled Oxygen Concentration - - Weight 88 kg (194 lb) 10/05/2024 9:47 AM EST Height - - Body Mass Index 31.31 09/24/2024 8:17 AM EST documented in this encounter Ordered Prescriptions Prescription Sig Dispensed Refills Start Date End Da te cyanocobalamin 2,000 mcg tablet Take 1 tablet (2,000 mcg total) by mouth 1 (one) time per week. 12 tablet 3 10/05/2024 cholecalciferol (Vitamin D3) 50 mcg (2,000 unit) tablet Take 1 tablet (2,000 Units total) by mouth 1 (one) time each day. 90 tablet 2 10/05/2024 documented in this encounter Progress Notes * Lillian Miguel MD - 10/05/2024 9:30 AM ESTAddended by: LILLIAN MIGUEL on: 10/05/2024 10:10 PM Modules accepted: Orders * Lillian Miguel MD - 10/05/2024 9:30 AM EST CHIEF COMPLAINT: Follow-up IDENTIFIER: Анна Rojas is a 49 y.o. old female. HPI:GERD, vitamin B12 deficiency, vitamin D deficiency, COPD, positive BERNARDA Patient had liver biopsy showing fibrosis, following GI Has an upcoming appointment with rheumatology for positive BERNARDA Has an upcoming appointment with oncology vitamin B12 efficiency for Lr- Beloit bodies in her CBC Has not been getting vitamin B12 injections once a month. ROS: GENERAL: No malaise, significant weight loss or fever NECK: No lumps, goiter, pain or significant neck swelling RESPIRATORY: No cough, wheezing or shortness of breath CARDIOVASCULAR: No chest pain, leg swelling or palpitations GI: No abdominal discomfort, blood in stools or black stools PSYCH: No sleep disturbance, mood disorder or recent psychosocial stressors. 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 GERD (gastroesophageal reflux disease) 08/24/2020 Cholelithiasis 08/24/2020 Complex ovarian cyst 08/24/2020 Carpal tunnel syndrome 08/24/2020 Chronic pain of toes of both feet 08/24/2020 Peripheral neuropathy 08/24/2020 Genital herpes 08/24/2020 Anxiety and depression 08/24/2020 Insomnia 08/24/2020 DDD (degenerative disc disease), cervical 08/24/2020 DJD (degenerative joint disease) 08/24/2020 Alopecia 08/24/2020 COPD (chronic obstructive pulmonary disease) ([facility]) 08/24/2020 Asthma 08/24/2020 Pulmonary nodules 08/24/2020 Past Surgical History: Procedure Laterality Date SECTION PROCEDURE: HISTORICAL DELIVERY; COMMENT: X3 EYE SURGERY PROCEDURE: HISTORICAL EYE SURGERY OTHER SURGICAL HISTORY PROCEDURE: HISTORY OTHER; COMMENT: axillary lympadenopathy OTHER SURGICAL HISTORY 2010 PROCEDURE: SC HYSTEROSCOPY ENDOMETRIAL ABLATION OTHER SURGICAL HISTORY PROCEDURE: ARTHROSCOPY PROCEDURE NEC; COMMENT: Knee TUBAL LIGATION 2005 PROCEDURE: HISTORICAL TUBAL LIGATION UPPER GASTROINTESTINAL ENDOSCOPY 02/27/2020 PROCEDURE: UPPER GI ENDOSCOPY/EXAM; COMMENT: Rodriguez's esophagus, gastritis. SOCIAL HISTORY: Social History Tobacco Use Smoking status: Every Day Current packs/day: 0.00 Types: Cigarettes Last attempt to quit: 05/10/2022 Years since quittin.4 Smokeless tobacco: Never Substance Use Topics Alcohol use: No FAMILY HISTORY: Family History Problem Relation Name Age of Onset Leukemia Mother Stroke Mother Dementia Mother Diabetes Father Hypertension Father Hyperlipidemia Father Coronary artery disease Father Breast cancer Maternal Grandmother 67.00 Alzheimer's disease Paternal Grandmother 89.00 Diabetes Paternal Grandmother Hypertension Paternal Grandmother Alzheimer's disease Paternal Grandfather Breast cancer Mother's side Maternal aunt dx age 40's Family Status Relation Name Status Mother Alive Father Alive MGM PGM PGF Mother's breanna Maternal aunt Alive Sister Alive Brother MGF No partnership data on file MEDICATIONS DISCONTINUED/REORDERED: There are no discontinued medications. ACTIVE MEDICATIONS: Outpatient Medications Marked as Taking for the 10/05/24 encounter (Office Visit) with Lillian Miguel MD Medication Sig Dispense Refill resmetirom (Rezdiffra) 80 mg tablet Take 80 mg by mouth 1 (one) time each day. 30 tablet 3 ALLERGIES: Allergies Allergen Reactions Sulfa (Sulfonamide Antibiotics) Anaphylaxis Sulfamethoxazole-Trimethoprim Anaphylaxis Cyclobenzaprine Hives Hydroxychloroquine Hives Tramadol Nausea And Vomiting Hydrochlorothiazide Hives PHYSICAL EXAM: Visit Vitals BP 122/62 (BP Location: Left arm, Patient Position: Sitting, BP Cuff Size: Large adult) Pulse 73 Temp 36.3 ??C (97.3 ??F) (Temporal) Wt 88 kg (194 lb) SpO2 98% BMI 31.31 kg/m?? OB Status Having periods Smoking Status Every Day BSA 1.97 m?? APPEARANCE: Alert and in no acute distress NECK: Neck supple, no adenopathy, thyroid symmetric and of normal size HEART: RRR with normal S1 and S2, no murmurs, no gallops, no JVD appreciated LUNG: clear to auscultation ABDOMEN: Bowel sounds normoactive, no bruits, soft, non-tender, without organomegaly or palpable masses SKIN: Skin color, texture, turgor normal. No rashes or lesions. LABS/IMAGING: Hospital Outpatient Visit on 09/24/2024 Component Date Value Ref Range Status Final Diagnosis 09/24/2024 Final Value:A. Liver, Biopsy (medical): Steatohepatitis with mild pericellular fibrosis (Stage 1 fibrosis) See note and comment Note: The findings are consistent with nonalcoholic steatohepatitis in the appropriate clinical setting. (CRN-GARCIA: 1+2+2= 5/8 ) An interface hepatitis or plasma cell rich aggregates or other histologic signs of an Autoimmune hepatitis are not identified. Bile ducts appear unremarkable. Slides are reviewed and interpreted at [facility] Comment 09/24/2024 Final Value:Sections show multiple liver cores with approximately 18 portal tracts with normal architecture. There is moderate predominantly large droplet steatosis (30%), lobular inflammation 2-4 foci/200x and many cells with prominent ballooning degeneration. Nesha denk bodies are not identified. Katina ve Bile ducts are unremarkable. Mild portal inflammation but Interface hepatitis is not identified. Special stains: Trichrome: Mild pericellular fibrosis (Stage 1 fibrosis) Iron: No stainable iron PAS-D: Negative for intracytoplasmic hyaline globules Gross Description 09/24/2024 Final Value:A. Liver, Random Cores: Labeled random liver cores . Received in formalin are three velásquez-brown soft tissue cores, each measuring approximately 1.6 x 0.1 cm, which are wrapped in paper and submitted in toto in one cassette, three pieces, multiple levels on one slide, three pieces, x 3. KAYE Disclaimer 09/24/2024 Final Value:Unless otherwise specified, all tissue is 10% NB formalin fixed and paraffin embedded. NOTE: The immunohistochemical tests and in situ hybridization tests were developed and their performance characteristics were determined by [facility]. They have not been cleared or approved by the U.S. Food and Drug Administration. The FDA has determined that such clearance or approval is not necessary. These tests are used for clinical purposes. They should not beregarded as investigational or for research. This laboratory is certified under the Clinical Laboratory Improvement Amendments of 1988 (CLIA) as qualified to perform high complexity clinical laboratory testing. (controls appropriate) Lab on 09/01/2024 Component Date Value Ref Range Status Hepatitis A Antibody IgM 09/01/2024 Negative Negative Final WBC 09/01/2024 13.4 (H) 4.8 - 10.8 K/mcL Final RBC 09/01/2024 4.80 3.80 - 4.80 M/mcL Final Hemoglobin 09/01/2024 14.4 11.5 - 16.0 g/dL Final Hematocrit 09/01/2024 45.0 35.0 - 47.0 % Final MCV 09/01/2024 93.2 79.0 - 98.0 FL Final MCH 09/01/2024 29.8 27.0 - 32.0 pcg Final MCHC 09/01/2024 32.0 32.0 - 37.0 g/dL Final RDW 09/01/2024 14.3 11.0 - 15.0 % Final Platelets 09/01/2024 306 130 - 400 K/mcL Final MPV 09/01/2024 11.4 (H) 7.0 - 11.0 FL Final NRBC 09/01/2024 0.0 <1.0 % Final NRBC Absolute 09/01/2024 0.00 <0.10 K/mcL Final Neutrophils % 09/01/2024 52.0 % Final Lymphocytes % 09/01/2024 36.0 % Final Reactive Lymphocyte 09/01/2024 1.00 % Final Monocytes % 09/01/2024 5.0 % Final Eosinophils % 09/01/2024 4.0 % Final Basophils % 09/01/2024 2.0 % Final Neutrophils Absolute Manual 09/01/2024 6.97 1.50 - 7.00 K/mcL Final Lymphocytes Absolute 09/01/2024 4.82 1.00 - 5.00 K/mcL Final Reactive Lymph Abs Manual 09/01/2024 0.13 (H) 0.00 - 0.00 lym Final Monocytes Absolute Manual 09/01/2024 0.67 0.20 - 1.00 K/mcL Final Eosinophils Absolute Manual 09/01/2024 0.54 (H) 0.00 - 0.50 K/mcL Final Basophils Absolute Manual 09/01/2024 0.27 (H) 0.00 - 0.20 K/mcL Final Rbc Morphology 09/01/2024 Present (A) Consistent with indices, Normal for Purchase Final Platelet Morphology - [facility] 09/01/2024 See Note (A) Normal Final Basophilic Stippling Present 09/01/2024 Present (A) (none) Final Lr-Beloit Bodies Present 09/01/2024 Present (A) (none) Final Schistocytes Present 09/01/2024 < 5% (A) (none) Final Lab on 08/25/2024 Component Date Value Ref Range Status Sodium 08/25/2024 140 133 - 145 mmol/L Final Potassium 08/25/2024 4.4 3.5 - 5.5 mmol/L Final Chloride 08/25/2024 110 96 - 110 mmol/L Final CO2 08/25/2024 26 21 - 32 mmol/L Final Anion Gap 08/25/2024 4 3 - 11 Final Glucose 08/25/2024 91 70 - 100 mg/dL Final BUN 08/25/2024 8 5 - 25 mg/dL Final Creatinine 08/25/2024 0.88 0.50 - 1.10 mg/dL Final eGFR 08/25/2024 81 >=60 mL/min/1.73m2 Final BUN/Creatinine Ratio 08/25/2024 9.1 Final Calcium 08/25/2024 9.2 8.5 - 10.5 mg/dL Final AST (SGOT) 08/25/2024 15 10 - 42 unit/L Final ALT (SGPT) 08/25/2024 17 10 - 60 unit/L Final Alkaline Phosphatase 08/25/2024 67 42 - 121 unit/L Final Total Protein 08/25/2024 6.5 6.0 - 8.0 g/dL Final Albumin 08/25/2024 3.6 3.2 - 5.0 g/dL Final Total Bilirubin 08/25/2024 0.3 0.0 - 1.4 mg/dL Final Mitochondrial Antibody Quantitative 08/25/2024 2.9 <=20.0 units Final Mitochondrial Antibody Qualitative 08/25/2024 Negative Negative Final Ceruloplasmin 08/25/2024 21 20 - 60 mg/dL Final GGT 08/25/2024 18 7 - 64 unit/L Final Hepatitis C Antibody 08/25/2024 Negative Negative Final Hepatitis Be Antibody 08/25/2024 Nonreactive Nonreactive Final Hep A Total Ab 08/25/2024 Negative Negative Final WBC 08/25/2024 12.6 (H) 4.8 - 10.8 K/mcL Final RBC 08/25/2024 5.10 (H) 3.80 - 4.80 M/mcL Final Hemoglobin 08/25/2024 14.9 11.5 - 16.0 g/dL Final Hematocrit 08/25/2024 47.7 (H) 35.0 - 47.0 % Final MCV 08/25/2024 94.3 79.0 - 98.0 FL Final MCH 08/25/2024 29.4 27.0 - 32.0 pcg Final MCHC 08/25/2024 31.2 (L) 32.0 - 37.0 g/dL Final RDW 08/25/2024 14.3 11.0 - 15.0 % Final Platelets 08/25/2024 331 130 - 400 K/mcL Final MPV 08/25/2024 11.4 (H) 7.0 - 11.0 FL Final NRBC 08/25/2024 0.0 <1.0 % Final NRBC Absolute 08/25/2024 0.00 <0.10 K/mcL Final Neutrophils Relative 08/25/2024 54.1 % Final Lymphocytes Relative 08/25/2024 33.4 % Final Monocytes Relative 08/25/2024 7.4 % Final Eosinophils Relative 08/25/2024 4.2 % Final Basophils Relative 08/25/2024 0.6 % Final Immature Granulocytes Relative 08/25/2024 0.3 % Final Neutrophils Absolute 08/25/2024 6.79 1.50 - 7.00 K/mcL Final Lymphocytes Absolute 08/25/2024 4.20 1.00 - 5.00 K/mcL Final Monocytes Absolute 08/25/2024 0.93 0.20 - 1.00 K/mcL Final Eosinophils Absolute 08/25/2024 0.53 (H) 0.00 - 0.50 K/mcL Final Basophils Absolute 08/25/2024 0.07 0.00 - 0.20 K/mcL Final Immature Granulocytes Absolute 08/25/2024 0.04 (H) 0.00 - 0.03 K/mcL Final Medication and lab orders: Orders Placed This Encounter Procedures Vitamin B12 Vitamin D 25 hydroxy Other orders: None IMPRESSION: 1. Vitamin B12 deficiency 2. Vitamin D deficiency 3. BERNARDA positive 4. Lr-Beloit bodies on peripheral blood smear 5. Mediastinal lymphadenopathy PLAN: Vitamin B12 deficiency--patient is not getting injections since her vitamin B12's were high, will order B12 levels today BERNARDA positive--following rheumatology in [place], he is being worked up Positive Lr-Beloit bodies and lymphadenopathy--has an upcoming appointment with oncology Recent liver biopsy--positive for fibrosis, following GI. Will follow-up in 4 months or sooner as needed Lillian Miguel MD on 10/05/2024 at 10:29 AM EST documented in this encounter Plan of Treatment Upcoming Encounters Date Type Department Care Team (Late st Contact Info) Description 10/15/2024 11:00 AM EST Office Visit [facility] Hematology Oncology [address] [place] [phone] Yuly Francis, [address] [place] [address] 11/23/2024 11:00 AM EDT Office Visit Gastroenterology - [place] 175 [facility] [address] [phone] Lisette Escobedo PA [address] [address] 01/04/2025 1:15 PM EDT Office Visit Pulmonolgy - [place] [address] [phone] Demetra Wheeler MD [address] [address] 01/08/2025 9:45 AM EDT Office Visit Obstetrics & Gynecology - [address] [phone] Nicolasa Naidu, [facility] [address] [place] [address] 03/10/2025 11:00 AM EDT Office Visit Internal Medicine - [place] [address] [phone] Lillian Miguel MD [address] [phone] documented as of this encounter Results * (ABNORMAL) Vitamin D 25 hydroxy (10/05/2024 10:18 AM EST) Vit D, 25-Hydroxy 25.3(L) 30.0 - 80.0 ng/mL LAB CHEMISTRY METHOD 10/05/2024 4:43 PM EST [facility] Blood Venous blood specimen / Unknown Venipuncture / Unknown 10/05/2024 10:18 AM EST 10/05/2024 10:18 AM EST Lillian Miguel MD LAB BLOOD ORDERABLES [facility] [address] [place] [address], * Vitamin B12 (10/05/2024 10:18 AM EST) Vitamin B-12 260 250 - 900 pcg/mL LAB CHEMISTRY METHOD 10/05/2024 5:00 PM EST [facility] Blood Venous blood specimen / Unknown Venipuncture / Unknown 10/05/2024 10:18 AM EST 10/05/2024 10:18 AM EST Lillian Miguel MD LAB BLOOD ORDERABLES [facility] [address] [place] [address], documented in this encounter Visit Diagnoses Diagnosis Vitamin B12 deficiency- Primary Other B-complex deficiencies Vitamin D deficiency BERNARDA positive Lr-Beloit bodies on peripheral blood smear Mediastinal lymphadenopathy Enlargement of lymph nodes documented in this encounter Additional Health Concerns Assessment Noted Time PHQ-9 Depression Total Score: 8 09/28/19 25 12:26 PM EST documented as of this encounter Care Teams Sensitized Paper Tester Relationship Specialty Start Date End Date Lillian Miguel MD [address] [phone] PCP - General Internal Medicine 06/27/20 documented as of this encounter
--- OUTSIDE RECORDS SUMMARY | 2024-10-06 11:29 | XMS_ITS | Encounter Summary ---
Author Organization [facility] Address [address] [place] [address] Care Team Providers Care Brass Instrument Repair Technician Name Role Phone Lillian Miguel MD Primary Care Provider [phone] Encounter Details Date Type Department Care Team Description 08/26/2020 Orders Only Internal Medicine - [address], [address] [place] [address] Lillian Miguel MD [address] [place] [phone] Social History Tobacco Use Types Packs/Day [...] Procedure Name Priority Date/Time Associated Diagnosis Comments VITAMIN B12 INJECTION Routine 08/26/2020 3:26 PM EST documented in this encounter Visit Diagnoses Not on filedocumented in this encounter Care Teams Brass Instrument Repair Technician Relationship Specialty Start Date End Date Lillian Miguel MD PCP - General Internal Medicine 06/27/20 documented as of this encounter
--- OUTSIDE RECORDS SUMMARY | 2024-10-06 11:29 | XMS_ITS | Encounter Summary ---
Author Organization [facility] Address [address] [place] [address] Care Team Providers Care Title Agent Name Role Phone Lillian Miguel MD Primary Care Provider [phone] Encounter Details Date Type Department Care Team Description 02/19/2023 Liquor Clerk Report Medical Records [address] [place] [address] Maci Sheridan [address] [place] [address] Social History Tobacco Use Types Packs/Day Years [...] suspected to have Coronavirus/COVID-19? No / Unsure 02/12/2023 10:05 AM EDT documented as of this encounter Plan of Treatment Not on file documented as of this encounter Visit Diagnoses Not on filedocumented in this encounter Care Teams Title Agent Relationship Specialty Start Date End Date Lillian Miguel MD PCP - General Internal Medicine 06/27/20 documented as of this encounter
--- OUTSIDE RECORDS SUMMARY | 2024-10-06 11:29 | XMS_ITS | Encounter Summary ---
Author Organization [facility] Address [address] [place] [address] Care Team Providers Care Mimeograph Operator Name Role Phone Lillian Miguel MD Primary Care Provider [phone] Encounter Details Date Type Department Care Team Description 01/21/2023 Orders Only Medical Records [address] [place] [address] Abstract, Provider Social History Tobacco Use Types [...] Recorded In the last 10 days, have maria d montelongo been in contact with someone who was confirmed or suspected to have Coronavirus/COVID-19? No / Unsure 01/14/2023 10:07 AM EDT documented as of this encounter Progress Notes * Vera Downing MD - 02/03/2023 3:28 PM EDT Dear Gi, The esophagus biopsies which were taken during her endoscopy did show presence of Rodriguez's esophagus associated mucosa without dysplasia. This requires that we will repeat your upper endoscopy in 3 years. For the time being, you will continue to take your acid reducing agent, and pay similar attention to anti- reflux lifestyle modifications. This will include measures such as avoiding late night snacks, fatty greasy foods during the evening hours, avoiding alcohol especially during late eveningand using at least 2 pillows to prop up your head while asleep. I would like to personally thank you for allowing us to take care of you. Please don't hesitate to call us for any questions or concerns. Regards, Saima Downing MD Board Certified Gastroenterology and Internal Medicine Transplant Hepatology [facility] documented in this encounter Plan of Treatment Not on file documented as of this encounter Procedures Procedure Name Priority Date/Time Associated Diagnosis Comments OUTSIDE PATHOLOGY Routine 01/17/2023 documented in this encounter Results * OUTSIDE PATHOLOGY (01/17/2023) Provider Abstract OUTSIDE LAB documented in this encounter Visit Diagnoses Not on filedocumented in this encounter Care Teams Mimeograph Operator Relationship Specialty Start Date End Date Lillian Miguel MD PCP - General Internal Medicine 06/27/20 documented as of this encounter
--- OUTSIDE RECORDS SUMMARY | 2024-10-06 11:29 | XMS_ITS | Encounter Summary ---
Author Organization [facility] Address [address] [place] [address] Care Team Providers Care Prosthodontist/Owner Name Role Phone Lillian Miguel MD Primary Care Provider [phone] Reason for Visit * Reason Comments E-prescribe Rx Request Encounter Details Date Type Department Care Team Description 11/14/2021 Refill Pulmonology - [place] 175 [facility] [address] [place] [address] Demetra Wheeler MD [address] [place] [address] E-prescribe Rx Request Social History Tobacco Use Types Packs/Day Years Used Date Smoking Tobacco: Former Cigarettes Q uit: 09/04/2021 Smokeless Tobacco: Never Comments:1/ ppk/ dy Alcohol Use Standard Drinks/Week Comments [...] have Coronavirus / COVID-19? No / Unsure 11/15/2021 10:44 AM EST documented as of this encounter Miscellaneous Notes * Telephone Encounter - Geraldine Hwang - 11/16/2021 9:02 AM EST Patient would like script to be: E-PRESCRIBED/FAXED TO PHARMACY WHEN WAS THE PATIENT'S LAST APPOINTMENT IN ADULT MEDICINE? 12/26/20 WHEN WAS THE LAST TIME THE PATIENT SAW THEIR PCP? Same as above Does patient have an upcoming appointment? Yes 12/27/21 (THE MEDICATION REQUESTED IS ON THE MED LIST ABOVE) All of the medications requested were on the CURRENT MEDS list Did you check the Pharmacy information above?: YES Patient wants: 30 -day supply Is this a mail order prescription request ? NO If the refill is from a FAXED refill request what is the RX # listed on the fax? N/A Patients current insurance carrier is: [place] / [place] / Product Type: MEDICARE [id number] documented in this encounter Plan of Treatment Not on file documented as of this encounter Visit Diagnoses Diagnosis Chronic obstructive pulmonary disease, unspecified COPD type (HCC) Cigarette smoker Tobacco use disorder documented in this encounter Care Teams Prosthodontist/Owner Relationship Specialty Start Date End Date Lillian Miguel MD PCP - General Internal Medicine 06/27/20 documented as of this encounter
--- OUTSIDE RECORDS SUMMARY | 2024-10-06 11:29 | XMS_ITS | Encounter Summary ---
Author Organization [facility] Address [address] [place] [address] Care Team Providers Care Inserter Promotional Item Name Role Phone Lillian Miguel MD Primary Care Provider [phone] Reason for Referral * Imaging (Routine) - Closed Specialty Diagnoses / Procedures Referred By Piter gilliam Referred To Contact Radiology Diagnoses Fatty liver Procedures US Bx Ndl Liver Lisette Arora PA [address] [address] Referral ID Status Reason Start Date Expiration Date Visits Re quested Visits Authorized [id number] Closed 09/16/2024 09/16/2025 1 1 * Imaging (Routine) - Closed Specialty Diagnoses / Procedures Referred By Piter gilliam Referred To Contact Radiology Diagnoses Fatty liver Procedures IR Bx Ndl Liver Lisette Arora PA [address] [address] [facility] Interventional Radiology [address] [place] [address] Referral ID Status Reason Start Date Expiration Date Visits Re quested Visits Authorized [id number] Closed 09/16/2024 09/16/2025 1 1 Encounter Details Date Type Department Care Team (Late st Contact Info) Description 09/15/2024 Telephone Gastroenterology - [place] [address] [place] [address] Lisette Escobedo PA [address] [place] [address] Social History Tobacco Use Types Packs/Day Years [...] as of this encounter Progress Notes * KAUR Jung - 09/16/2024 11:58 AM EST Ok TY :) * Monica Varghese MA - 09/15/2024 3:23 PM EST Spoke with patient she would like to move forward with liver biopsy, Remember this is two orders now Interventional Radiology order - [id number] Ultrasound guided - [id number] * Monica Varghese MA - 09/15/2024 2:18 PM EST Spoke with patient, she is made aware. She did ask if she can think about wether she would like to move forward with the liver biopsy, I told her no problem to give us a call once she decides * KAUR Jung - 09/15/2024 1:26 PM EST Please contact patient and let her know that I did receive her blood work from [facility] and yher smooth antibody was elevated at 48, which indicates that 75% of patients with that have autoimmune hepatitis her blood work that I ordered was only negative and her liver enzymes were all normal, however, I will be more than happy to proceed with liver biopsy to confirm or to see if she has autoimmune hepatitis. Please ask her if it is okay to proceed thank you documented in this encounter Plan of Treatment Upcoming Encounters Date Type Department Care Team (Late st Contact Info) Description 10/15/2024 11:00 AM EST Office Visit [facility] Hematology Oncology [address] [place] [phone] Yuly Francis, DO [address] [place] [address] 11/23/2024 11:00 AM EDT Office Visit Gastroenterology - [place] [address] [phone] Lisette Escobedo PA [address] [address] 01/04/2025 1:15 PM EDT Office Visit Pulmonolgy - [place] [address] [phone] Demetra Wheeler MD [address] [address] 01/08/2025 9:45 AM EDT Office Visit Obstetrics & Gynecology - [facility] [address] [place] [phone] Nicolasa Naidu, [facility] [address] [place] [address] 03/10/2025 11:00 AM EDT Office Visit Internal Medicine - [place] 175 [facility] [address] [place] [phone] Lillian Miguel MD 175 [facility] [address] [place] [address] Scheduled Orders Name Type Priority Associated Diagnoses Orde r Schedule IR Bx Ndl Liver Perc Imaging Routine Fatty liver Expected: 09/16/2024, Expires: 09/16/2025 documented as of this encounter Results * US Bx Ndl Liver Perc (09/24/2024 10:14 AM EST) Anatomical Region Laterality Modality Body Ultrasound 09/24/2024 2:10 PM EST Narrative 09/24/2024 2:10 PM EST Ultrasound-guided liver biopsy INDICATION: Liver biopsy will be helpful to determine the stage of her liver cirrhosis to see if she is a candidate for liver transplant CONCLUSION: Successful ultrasound guided biopsy. ?? MASSAGE THERAPY INSTRUCTOR(S): Porfirio Blake MD ANESTHESIA: 2% lidocaine, Fentanyl [...] Signed Date: 09/24/2024 14:10 ET Workstation ID: [id number] Transcribed By: Self Edit Transcribed Date: 09/24/2024 14:10 ET Procedure Note Porfirio Blake MD - 09/24/2024 Ultrasound-guided liver biopsy INDICATION: Liver biopsy will be helpful to determine the stage of herliver cirrhosis to see if she is a candidate for liver transplant CONCLUSION: Successful ultrasound guided biopsy. MASSAGE THERAPY INSTRUCTOR(S): Porfirio Blake MD ANESTHESIA: 2% lidocaine, Fentanyl [...] Signed Date: 09/24/2024 14:10 ET Workstation ID: [id number] Transcribed By: Self Edit Transcribed Date: 09/24/2024 14:10 ET Lisette DIETRICH IMG US PROCEDURES documented in this encounter Visit Diagnoses Diagnosis Fatty liver- Primary Other chronic nonalcoholic liver disease Fatty liver Other chronic nonalcoholic liver disease documented in this encounter Care Teams Inserter Promotional Item Relationship Specialty Start Date End Date Lillian Miguel MD [address] [place] [phone] PCP - General Internal Medicine 06/27/20 documented as of this encounter
--- OUTSIDE RECORDS SUMMARY | 2024-10-06 11:30 | XMS_ITS | Encounter Summary ---
Author Organization [facility] Address [address] [place] [address] Care Team Providers Care Detail Sergeant Name Role Phone Lillian Miguel MD Primary Care Provider [phone] Encounter Details Date Type Department Care Team Description 01/19/2021 Client Success Manager Report Medical Records [address] [place] [address] Thad Reyes MD Social History Tobacco Use Types Packs/Day Years [...] have Coronavirus / COVID-19? No / Unsure 12/26/2020 2:40 PM EDT documented as of this encounter Plan of Treatment Not on file documented as of this encounter Visit Diagnoses Not on filedocumented in this encounter Care Teams Detail Sergeant Relationship Specialty Start Date End Date Lillian Miguel MD PCP - General Internal Medicine 06/27/20 documented as of this encounter
--- OUTSIDE RECORDS SUMMARY | 2024-10-06 11:30 | XMS_ITS | Encounter Summary ---
Author Organization [facility] Address [address] [place] [address] Care Team Providers Care News Analyst Name Role Phone Lillian Miguel MD Primary Care Provider [phone] Encounter Details Date Type Department Care Team Description 04/10/2024 Pt. Non Urgent Medical Question Internal Medicine - [address], [address] [place] [address] Lillian Miguel MD [address] [place] [phone] Social History Tobacco Use Types Packs/Day [...] on filedocumented in this encounter Care Teams News Analyst Relationship Specialty Start Date End Date Lillian Miguel MD PCP - General Internal Medicine 06/27/20 documented as of this encounter
--- OUTSIDE RECORDS SUMMARY | 2024-10-06 11:30 | XMS_ITS | Clinical Summary ---
Author Organization 175 [facility] Address [address] [place] [address] Phone Care Team Providers Care Child Care Teacher Name Role Phone Lillian Miguel MD Primary Care Provider [phone] Allergies Active Allergy Reactions Criticality Noted Date Comments Cyclobenzaprine Hives Medium 08/16/2020 Hydrochlorothiazide Hives 08/16/2020 Hydroxychloroquine Hives Medium 08/16/2020 Sulfa (Sulfonamide Antibiotics) Anaphylaxis High Sulfamethoxazole-Trimethoprim Anaphylaxis High 08/16 Tramadol Nausea And Vomiting Medium 08/16/2020 Medications Medication Sig Dispensed Refills Start Date End Date Status albuterol HFA (PROAIR HFA ; PROVENTIL HFA ; VENTOLIN HFA) 90 mcg/actuation inhaler Inhale 2 puffs by mouth Every 4 hours as needed. Active cholecalciferol (VITAMIN D-3) 50 mcg (2,000 unit) tablet Take 1 tablet (2,000 Units total) by mouth 1 (one) time each day. 10/02/2023 Active cyanocobalamin (VITAMIN B-12) 1,000 mcg/mL injection Inject 1 mL (1,000 mcg total) into the shoulder, thigh, or buttocks. Active fluticasone-salmet isak (ADVAIR DISKUS) 250-50 mcg/dose diskus inhaler Inhale 1 puff by mouth. 02/06/2024 Active pantoprazole (PROTONIX) 40 mg EC tablet TAKE 1 TABLET BY MOUTH DAILY 90 tablet 1 09/08/2024 Active famotidine (PEPCID) 40 mg tablet TAKE 1 TABLET BY MOUTH AT BEDTIME 90 tablet 1 09/20/2024 Active resmetirom (Rezdiffra) 80 mg tablet Take 80 mg by mouth 1 (one) time each day. 30 tablet 3 09/28/2024 Active cholecalciferol (Vitamin D3) 50 mcg (2,000 unit) tablet Take 1 tablet (2,000 Units total) by mouth 1 (one) time each day. 90 tablet 2 10/05/2024 Active cyanocobalamin 2,000 mcg tablet Take 1 tablet (2,000 mcg total) by mouth 1 (one) time per week. 12 tablet 3 10/05/2024 Active betamethasone dipropionate (DIPROSONE) 0.05 % cream 02/19/2024 09/24/2024 Discontinued famotidine (PEPCID) 40 mg tablet Take 1 tablet (40 mg total) by mouth. 03/18/2024 09/20/2024 Discontinued metoclopramide (REGLAN) 5 mg tablet Take 1 tablet (5 mg total) by mouth. 12/10/2023 09/24/2024 Discontinued pantoprazole (PROTONIX) 40 mg EC tablet Take 1 tablet (40 mg total) by mouth 1 (one) time each day. 02/05/2024 09/08/2024 Discontinued varenicline (CHANTIX ADAIR) 0.5 mg (11)- 1 mg (42) tablet Take 1 tablet by mouth. 05/04/2024 09/24/2024 Discontinued Active Problems Problem Noted Date Diagnosed Date Lr-[place] bodies on peripheral blood smear BERNARDA positive 10/05/2024 Tobacco use 06/24/2024 Hx of tear of ACL (anterior cruciate ligament) 1 Overview (06/24/2024): Left knee Genetic testing 06/24/2024 Overview (06/24/2024): [employer] hereditary breast/ovarian cancer screen NEGATIVE. There is a 18.3 % Tyrer-Cuzick lifetime breast cancer risk. No additional screening is indicated. Gastroparesis 03/11/2024 Fatty liver 04/05/2023 Leukocytosis 09/16/2020 Overview (06/24/2024): Fluctuating dating back to at least 2010. Mild fluctuating lymphocytosis as well. 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 Overview (06/24/2024): Gastritis on Upper GI 02/27/2020 GERD (gastroesophageal reflux disease) 0 Cholelithiasis 08/24/2020 Overview (06/24/2024): 06/27/2016 CT Complex ovarian cyst 08/24/2020 Carpal tunnel syndrome 08/24/2020 Chronic pain of toes of both feet 08/24/2020 Peripheral neuropathy 08/24/2020 Genital herpes 08/24/2020 Anxiety and depression 08/24/2020 Insomnia 08/24/2020 DDD (degenerative disc disease), cervical 2019 DJD (degenerative joint disease) 08/24/2020 Overview (06/24/2024): Thoracic spine Alopecia 08/24/2020 COPD (chronic obstructive pulmonary disease) Asthma 08/24/2020 Pulmonary nodules 08/24/2020 Encounters Date Type Department Care Team Description 10/05/2024 9:30 AM EST Office Visit Internal Medicine - [address] [phone] Lillian Miguel MD Vitamin B12 deficiency (Primary Dx); Vitamin D deficiency; BERNARDA positive; Lr-[place] bodies on peripheral blood smear; Mediastinal lymphadenopathy 09/28/2024 Telephone Gastroenterology - [place] 175 [facility] [address] [phone] Lisette Escobedo PA Prior Authorization 09/24/2024 8:49 AM EST - 09/24/2024 11:59 PM EST Hospital Encounter [facility] Ultrasound [address] [place] [address] Fatty liver Discharge Disposition: Home or Self Care 09/24/2024 8:09 AM EST - 09/24/2024 11:59 PM EST Hospital Encounter [facility] Interventional Radiology [address] [place] [phone] Fatty liver Discharge Disposition: Home or Self Care 09/22/2024 Telephone Gastroenterology [facility] 175 [facility] [address] [place] [phone] Lisette Escobedo PA provider call back 09/15/2024 Telephone Gastroenterology [facility] 175 [facility] 175 [facility] [address] [place] [phone] Lisette Escobedo PA 09/01/2024 11:35 AM EST Lab Draw Station - [address] [place] [address] Fatty liver (Primary Dx); Mediastinal lymphadenopathy; Pulmonary nodules; Leukocytosis, unspecified type 08/25/2024 10:45 AM EST Lab Draw Station - [address] [place] [address] Fatty liver (Primary Dx) 08/25/2024 10:00 AM EST Office Visit Gastroenterology [address] [place] [phone] Lisette Escobedo PA Fatty liver (Primary Dx); Gastroparesis; Rodriguez's esophagus without dysplasia; Gastroesophageal reflux disease, unspecified whether esophagitis present 08/25/2024 Telephone Gastroenterology [facility] [address] [place] [address] Lisette Escobedo PA from Last 3 Months Immunizations Name Administration Dates Next Due MMR, measles mumps and rubel la Live (Priorix; M-M-R II) 12mo and older 06/04/2007 Pfizer SARS-CoV-2 COVID-19, mRNA, LNP-S, preservative free 08/16/2021,01/03/2021,12/13/2020 Pneumococcal conjugate 13 va lent (Prevnar 13, PCV13) 2mo and older 08/10/2019 Tdap Tetanus diptheria acell ular pertussis (Boostrix; Adacel) 7yo and older 10/12/2008 Surgical History Surgery Date Site/Laterality Comments OTHER SURGICAL HISTORY PROCEDURE: HISTORY OTHER; COMMENT: axillary lympadenopathy SECTION PROCEDURE: HISTORICAL DELIVERY; COMMENT: X3 EYE SURGERY PROCEDURE: HISTORICAL EYE SURGERY OTHER SURGICAL HISTORY 2010 PROCEDURE: NM HYSTEROSCOPY ENDOMETRIAL ABLATION OTHER SURGICAL HISTORY PROCEDURE: ARTHROSCOPY PROCEDURE NEC; COMMENT: Knee TUBAL LIGATION 2005 PROCEDURE: HISTORICAL TUBAL LIGATION UPPER GASTROINTESTINAL ENDOSCOPY 02/27/2020 PROCEDURE: UPPER GI ENDOSCOPY/EXAM; COMMENT: Rodriguez's esophagus, gastritis. 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 DX:Rodriguez's esophagus GERD (gastroesophageal reflu x disease) 08/24/2020 DX:GERD (gastroesophageal re flux disease) Alopecia 08/24/2020 DX:Alopecia Asthma 08/24/2020 DX:Asthma Carpal tunnel syndrome 08/24/2020 DX:Carpal tunnel syndrome History of cellulitis 08/24/2020 DX:History of cellulitis; COMMENT: LUE Hx of tear of ACL (anterior cruciate ligament) 08/24/2020 DX:Hx of tear of ACL (anteri or cruciate ligament); COMMENT: Left knee DDD (degenerative disc disea se), cervical 08/24/2020 DX:DDD (degenerative disc di sease), cervical Chronic pain of toes of both feet 08/24/2020 DX:Chronic pain of toes of both feet Complex ovarian cyst 08/24/2020 DX:Complex ovarian cyst DJD (degenerative joint disease) 08/24/2020 DX:DJD (degenerative joint disease); COMMENT: Thoracic spine Genital herpes 08/24/2020 DX:Genital herpe s Insomnia 08/24/2020 DX:Insomnia Mediastinal lymphadenopathy 08/24/2020 DX:M ediastinal lymphadenopathy Peripheral neuropathy 08/24/2020 DX:Periphe ral neuropathy Prediabetes 08/24/2020 DX:Prediabetes Pulmonary nodules 08/24/2020 DX:Pulmonary n odules Thyroid nodule 08/24/2020 DX:Thyroid nodul e Vitamin B12 deficiency 08/24/2020 DX:Vitami n B12 deficiency Vitamin D deficiency 08/24/2020 DX:Vitamin D deficiency Tobacco use 08/24/2020 DX:Tobacco use Cholelithiasis 08/24/2020 DX:Cholelithiasi s; COMMENT: 06/27/2016 CT Leukocytosis 09/16/2020 DX:Leukocytosis; COMMENT: Fluctuating dating back to at least 2010. Mild fluctuating lymphocytosis as well. History of 2019 novel reeves virus disease (COVID-19) 08/2021 DX:History of 2019 novel cor onavirus disease (COVID-19) Extensive tattoos DX:Extensive t attoos Family History Medical History Relation Name Comments Coronary artery disease Father Diabetes Father Hyperlipidemia Father Hypertension Father Breast cancer Maternal Grandmother Dementia Mother Leukemia Mother Stroke Mother Breast cancer Mother's side Maternal aunt dx age 40's Alzheimer's disease Paternal Grandfather Alzheimer's disease Paternal Grandmother Diabetes Paternal Grandmother Hypertension Paternal Grandmother Relation Name Status Comments Brother Father Alive Maternal Grandfather Maternal Grandmother Mother Alive Mother's side Maternal aunt Alive Paternal Grandfather Paternal Grandmother Sister Alive Social History Tobacco Use Types Packs/Day Years [...] for your loved ones. For example, child neurologist or elderly care for an older adult? [...] file Not on file Not on file Obstetrics History Last Filed Vital Signs Vital Sign Reading Time Taken Comments Blood Pressure 122/62 10/05/2024 9:47 AM EST Pulse 73 10/05/2024 9:47 AM EST Temperature 36.3 ??C (97.3 ??F) 10/05/2024 9:47 AM ES T Respiratory Rate 18 09/24/2024 8:17 AM EST Oxygen Saturation 98% 10/05/2024 9:47 AM EST Inhaled Oxygen Concentration - - Weight 88 kg (194 lb) 10/05/2024 9:47 AM EST Height 167.6 cm (5' 6 ) 09/24/2024 8:17 AM EST Body Mass Index 31.31 09/24/2024 8:17 AM EST Plan of Treatment Upcoming Encounters Date Type Department Care Team (Late st Contact Info) Description 10/15/2024 11:00 AM EST Office Visit [facility] Hematology Oncology [address] [place] [phone] Yuly Francis DO [address] [place] [address] 11/23/2024 11:00 AM EDT Office Visit Gastroenterology - [address] [phone] Lisette Escobedo PA [address] [address] 01/04/2025 1:15 PM EDT Office Visit Pulmonolgy - [address] [phone] Demetra Wheeler MD [address] [place] [address] 01/08/2025 9:45 AM EDT Office Visit Obstetrics & Gynecology - [address] [phone] Vikki Naidu, [facility] [address] [place] [address] 03/10/2025 11:00 AM EDT Office Visit Internal Medicine - [address] [phone] Lillian Miguel MD [address] [place] [phone] Health Maintenance Due Date Last Done Comments Hepatitis A Vaccines (1 of 2 - Risk 2-dose series) 1995 Hepatitis B Vaccines (1 of 3 - 19+ 3-dose series) 1995 DTaP,Tdap,and Td Vaccines (2 - Td or Tdap) 10/12/2018 10/12/2008 Pneumococcal Vaccine: Pediatrics (0 to 5 Years) and At-Risk Patients (6 to 64 Years) (2 of 2 - PPSV23 or PCV20) 10/05/2019 08/10/2019 Colorectal Cancer Screening: Colonoscopy 08/17/2022 HIV Screening 08/17/2022 Medicare Annual Wellness Visit 08/17/2022 COVID-19 Vaccine ( season) 2024 10/06/2022, 01/21/2022, 08/16/2021, Additional history exists Influenza Vaccine (#1) 2024 09/22/2012 Depression Screening 09/28/2025 09/28/2024, 10/05/19 22 Social Influencers of Health Screening 09/28/2025 09/28/2024 Breast Cancer Screening 11/21/2025 11/22/19 24, 11/22/2023, 11/19/2022, Additional history exists Cervical Cancer Screening: Pap Smear 11/11/2026 11/12/2023, 09/29/2020, 09/29/2020 Cholesterol Screening (Lipid Panel) 10/09/2027 10/09/2022 MMR Vaccines Aged Out 06/04/2007 No longer eligi ble based on patient's age to complete this topic Hepatitis C Screening Completed 08/25/2024 HIB Vaccines Aged Out No longer eligi ble based on patient's age to complete this topic HPV Vaccines Aged Out No longer eligi ble based on patient's age to complete this topic IPV Vaccines Aged Out No longer eligi ble based on patient's age to complete this topic Meningococcal ACWY Vaccine Aged Out N o longer eligible based on patient's age to complete this topic RSV Immunization Patients Under 20 months Aged Out No longer eligible based on patient's age to complete this topic Varicella Vaccines Aged Out No longer eligible based on patient's age to complete this topic Procedures Procedure Name Priority Date/Time Associated Diagnosis Comments VITAMIN D 25 HYDROXY Routine 10/05/2024 10:18 AM EST Vitamin B12 deficiency Vitamin D deficiency VITAMIN B12 Routine 10/05/2024 10:18 AM EST Vitamin B12 deficiency Vitamin D deficiency TISSUE EXAM Routine 09/24/2024 10:16 AM EST Fatty liver US BX NDL LIVER PERC Routine 09/24/2024 10:14 AM EST Fatty liver MANUAL DIFFERENTIAL - SYSMEX WAM Routine 09/01/2024 11:34 AM EST Leukocytosis, unspecified type CBC WITH AUTO DIFFERENTIAL Routine 09/01/2024 11:34 AM EST Leukocytosis, unspecified type HEPATITIS A ANTIBODY IGM Routine 024 11:34 AM EST Fatty liver Mediastinal lymphadenopathy Pulmonary nodules CBC AND DIFFERENTIAL Routine 09/01/2024 11:34 AM EST Leukocytosis, unspecified type EXTERNAL ULTRASOUND REPORT 08/30/2024 CBC WITH AUTO DIFFERENTIAL Routine 08/25/2024 10:45 AM EST Fatty liver HEPATITIS A ANTIBODY TOTAL WITH REFLEX IGM Routine 08/25/2024 10:45 AM EST Fatty liver HEPATITIS B E ANTIBODY Routine 10:45 AM EST Fatty liver HEPATITIS C ANTIBODY Routine 08/25/2024 10:45 AM EST Fatty liver GAMMA GLUTAMYL TRANSFERASE Routine 08/25/2024 10:45 AM EST Fatty liver CERULOPLASMIN Routine 08/25/2024 10:45 AM EST Fatty liver ANTIMITOCHONDRIAL ANTIBODY Routine 08/25/2024 10:45 AM EST Fatty liver COMPREHENSIVE METABOLIC PANEL Routine 08/25/2024 10:45 AM EST Fatty liver CBC AND DIFFERENTIAL Routine 08/25/2024 10:45 AM EST Fatty liver EXTERNAL CLINICAL LAB 08/05/2024 SANDRA SCREENING DIGITAL Routine 11/22/2023 11:33 AM EDT Encounter for screening mammogram for malignant neoplasm of breast PAP SMEAR Routine 11/12/2023 from Last 3 Months or Most Recently Relevant to Health Maintenance Results * (ABNORMAL) Vitamin D 25 hydroxy (10/05/2024 10:18 AM EST) Pathologist [facility] Vit D, 25-Hydroxy 25.3(L) 30.0 - 80.0 ng/mL LAB CHEMISTRY METHOD 10/05/2024 4:43 PM EST [facility] Blood Venous blood specimen / Unknown Venipuncture / Unknown 10/05/2024 10:18 AM EST 10/05/2024 10:18 AM EST Lillian Miguel MD LAB BLOOD ORDERABLES Performing Organization Address [facility]/ZIP Co de Phone Number [facility] [address] [place] [address], * Vitamin B12 (10/05/2024 10:18 AM EST) Pathologist [facility] Vitamin B-12 260 250 - 900 pcg/mL LAB CHEMISTRY METHOD 10/05/2024 5:00 PM EST [facility] Blood Venous blood specimen / Unknown Venipuncture / Unknown 10/05/2024 10:18 AM EST 10/05/2024 10:18 AM EST Lillian Miguel MD LAB BLOOD ORDERABLES Performing Organization Address City/[facility]/ZIP Co de Phone Number [facility] [address] [place] [address], [place] [phone] * Tissue exam (09/24/2024 10:16 AM EST) Pathologist [facility] Final Diagnosis A. Liver, Biopsy (medical): Steatohepatitis [...] unremarkable. Slides are reviewed and interpreted at [facility] 12:46 PM EST [facility] Comment Sections show multiple liver cores with approximately 18 portal tracts with normal architecture. There is moderate predominantly large droplet steatosis (30%), lobular inflammation 2-4 foci/200x and many cells with prominent ballooning degeneration. Nesha denk bodies are not identified. [place] Bile ducts are unremarkable. Mild portal inflammation but Interface hepatitis is not identified. Special stains: Trichrome: Mild pericellular fibrosis (Stage 1 fibrosis) Iron: No stainable iron PAS-D: Negative for intracytoplasmic hyaline globules 12:46 PM [facility] Gross Description A. Liver, Random Cores: Labeled random liver cores . Received in formalin are three velásquez-brown soft tissue cores, each measuring approximately 1.6 x 0.1 cm, which are wrapped in paper and submitted in toto in one cassette, three pieces, multiple levels on one slide, three pieces, x 3. KAYE 12:46 PM EST [facility] Disclaimer Unless otherwise specified, all tissue is 10% NB formalin fixed and paraffin embedded. NOTE: The immunohistochemical tests and in situ hybridization tests were developed and their performance characteristics were determined by [facility] Histology Laboratory. They have not been [...] clinical laboratory testing. (controls appropriate) 12:46 PM [facility] Tissue Liver structure / Unknown 09/24/2024 10:16 AM EST 09/24/2024 10:35 AM EST Lisette DIETRICH LAB PATHOLOGY ORDERA BLES [facility] [address] [place] [address], [place] [phone] * US Bx Ndl Liver Perc (09/24/2024 10:14 AM EST) Anatomical Region Laterality Modality Body Ultrasound 09/24/2024 2:10 PM EST Narrative 09/24/2024 2:10 PM EST Ultrasound-guided liver biopsy INDICATION: Liver biopsy will be helpful to determine the stage of her liver cirrhosis to see if she is a candidate for liver transplant CONCLUSION: Successful ultrasound guided biopsy. ?? CHIEF DESIGN BRANCH(S): Porfirio Blake MD ANESTHESIA: 2% lidocaine, Fentanyl [...] Signed Date: 09/24/2024 14:10 ET Workstation ID: [id number] Transcribed By: Self Edit Transcribed Date: 09/24/2024 14:10 ET Procedure Note Porfirio Blake MD - 09/24/2024 Ultrasound-guided liver biopsy INDICATION: Liver biopsy will be helpful to determine the stage of herliver cirrhosis to see if she is a candidate for liver transplant CONCLUSION: Successful ultrasound guided biopsy. CHIEF DESIGN BRANCH(S): Porfirio Blake MD ANESTHESIA: 2% lidocaine, Fentanyl [...] Signed Date: 09/24/2024 14:10 ET Workstation ID: [id number] Transcribed By: Self Edit Transcribed Date: 09/24/2024 14:10 ET Lisette DIETRICH IMG US PROCEDURES * (ABNORMAL) Manual differential (09/01/2024 11:34 AM EST) Neutrophils % 52.0 % LAB HEMETOLOGY METHOD 09/01/2024 4:23 PM [facility] Lymphocytes % 36.0 % LAB HEMETOLOGY METHOD 09/01/2024 4:23 PM [facility] Reactive Lymphocyte 1.00 % LAB HEMETOLOGY METHOD 09/01/2024 4:23 PM [facility] Monocytes % 5.0 % LAB HEMETOLOGY METHOD 09/01/2024 4:23 PM [facility] Eosinophils % 4.0 % LAB HEMETOLOGY METHOD 09/01/2024 4:23 PM [facility] Basophils % 2.0 % LAB HEMETOLOGY METHOD 09/01/2024 4:23 PM [facility] Neutrophils Absolute Manual 6.97 1.50 - 7.00 K/mcL LAB HEMETOLOGY METHOD 09/01/2024 4:23 PM [facility] Lymphocytes Absolute 4.82 1.00 - 5.00 K/mcL LAB HEMETOLOGY METHOD 09/01/2024 4:23 PM [facility] Reactive Lymph Abs Manual 0.13(H) 0.00 - 0.00 lym LAB HEMETOLOGY METHOD 09/01/2024 4:23 PM [facility] Monocytes Absolute Manual 0.67 0.20 - 1.00 K/mcL LAB HEMETOLOGY METHOD 09/01/2024 4:23 PM [facility] Eosinophils Absolute Manual 0.54(H) 0.00 - 0.50 K/mcL LAB HEMETOLOGY METHOD 09/01/2024 4:23 PM [facility] Basophils Absolute Manual 0.27(H) 0.00 - 0.20 K/mcL LAB HEMETOLOGY METHOD 09/01/2024 4:23 PM [facility] Rbc Morphology Present( A) Consistent with indices, Normal for LAB HEMETOLOGY METHOD 09/01/2024 4:23 PM EST [facility] Comment:RBC: Morphology agre es with CBC Platelet Morphology - WAM See Note(A) Normal LAB HEMETOLOGY METHOD 09/01/2024 4:23 PM EST [facility] Comment:PLT: Large platelets seen Basophilic Stippling Present Present( A) (none) LAB HEMETOLOGY METHOD 09/01/2024 4:23 PM EST [facility] Lr-[place] Bodies Present Present( A) (none) LAB HEMETOLOGY METHOD 09/01/2024 4:23 PM [facility] Schistocytes Present < 5%(A) (none) LAB HEMETOLOGY METHOD 09/01/2024 4:23 PM [facility] Blood Venous blood specimen / Unknown Venipuncture / Unknown 09/01/2024 11:34 AM EST 09/01/2024 11:34 AM EST Lisette DIETRICH LAB BLOOD ORDERABLES [facility] [address] [place] [address], * (ABNORMAL) CBC auto differential (09/01/2024 11:34 AM EST) Only the most recent of2 resultswithin the time period is included. WBC 13.4(H) 4.8 - 10.8 K/mcL LAB HEMETOLOGY METHOD 09/01/2024 4:23 PM [facility] RBC 4.80 3.80 - 4.80 M/mcL LAB HEMETOLOGY METHOD 09/01/2024 4:23 PM [facility] Hemoglobin 14.4 11.5 - 16.0 g/dL LAB HEMETOLOGY METHOD 09/01/2024 4:23 PM [facility] Hematocrit 45.0 35.0 - 47.0 % LAB HEMETOLOGY METHOD 09/01/2024 4:23 PM EST [facility] MCV 93.2 79.0 - 98.0 FL LAB HEMETOLOGY METHOD 09/01/2024 4:23 PM EST [facility] MCH 29.8 27.0 - 32.0 pcg LAB HEMETOLOGY METHOD 09/01/2024 4:23 PM [facility] MCHC 32.0 32.0 - 37.0 g/dL LAB HEMETOLOGY METHOD 09/01/2024 4:23 PM EST [facility] RDW 14.3 11.0 - 15.0 % LAB HEMETOLOGY METHOD 09/01/2024 4:23 PM [facility] Platelets 306 130 - 400 K/mcL LAB HEMETOLOGY METHOD 09/01/2024 4:23 PM [facility] MPV 11.4(H) 7.0 - 11.0 FL LAB HEMETOLOGY METHOD 09/01/2024 4:23 PM EST [facility] NRBC 0.0 <1.0 % LAB HEMETOLOGY METHOD 09/01/2024 4:23 PM [facility] NRBC Absolute 0.00 <0.10 K/mcL LAB HEMETOLOGY METHOD 09/01/2024 4:23 PM [facility] Blood Venous blood specimen / Unknown Venipuncture / Unknown 09/01/2024 11:34 AM EST 09/01/2024 11:34 AM EST Lisette DIETRICH LAB BLOOD ORDERABLES [facility] [address] [place] [address], * Hepatitis A antibody IgM (09/01/2024 11:34 AM EST) Hepatitis A Antibody IgM Negative Negative LAB CHEMISTRY METHOD 09/01/2024 4:51 PM [facility] Blood Venous blood specimen / Unknown Venipuncture / Unknown 09/01/2024 11:34 AM EST 09/01/2024 11:34 AM EST Narrative [facility] - 09/01/2024 4:51 PM EST Over the counter supplements containing high doses of biotin may interfere with this assay. ??If interference is suspected, patients shoud be retested after refraining from biotin supplements for 72 hours. Lisette DIETRICH LAB BLOOD ORDERABLES Performing Organization Address [facility] Co de Phone Number [facility] [address] [place] [address], [place] [phone] * External Ultrasound Report (08/30/2024) Anatomical Region Laterality Modality Ultrasound Provider [facility] IMG US PROCEDURE S * Hepatitis C antibody (08/25/2024 10:45 AM EST) Hepatitis C Antibody Negative Negative LAB CHEMISTRY METHOD 08/25/2024 3:37 PM EST [facility] Blood Venous blood specimen / Unknown Venipuncture / Unknown 08/25/2024 10:45 AM EST 08/25/2024 10:46 AM EST Lisette DIETRICH LAB BLOOD ORDERABLES Performing Organization Address [facility]/ZIP Co de Phone Number [facility] [address] [place] [address], [place] [phone] * Hepatitis A antibody total with reflex IgM (08/25/2024 10:45 AM EST) Hep A Total Ab Negative Negative LAB CHEMISTRY METHOD 08/25/2024 3:37 PM EST [facility] Blood Venous blood specimen / Unknown Venipuncture / Unknown 08/25/2024 10:45 AM EST 08/25/2024 10:46 AM EST Narrative [facility] - 08/25/2024 3:37 PM EST Over the counter supplements containing high doses of biotin may interfere with this assay. ??If interference is suspected, patients shoud be retested after refraining from biotin supplements for 72 hours. Lisette Escobedo PA LAB BLOOD ORDERABLES Performing Organization Address City/[facility]/ZIP Co de Phone Number [facility] [address] [place] [address], * Hepatitis B e antibody (08/25/2024 10:45 AM EST) Hepatitis Be Antibody Nonreactive Nonreactive 08/28/2024 5:42 AM EST [facility] Comment: Test performed at [facility], [address] [place], [place] ??[address] ? [phone] Kaleigh Blanchard MD, PhD - Frozen Meat Cutter Blood Venous blood specimen / Unknown Venipuncture / Unknown 08/25/2024 10:45 AM EST 08/25/2024 10:46 AM EST Lisette Escobedo PA LAB BLOOD ORDERABLES Performing Organization Address [facility] de Phone Number [facility] [address] [place] [place] [address] * Ceruloplasmin (08/25/2024 10:45 AM EST) Ceruloplasmin 21 20 - 60 mg/dL 08/28/2024 4:06 AM EST [facility] Comment: Test performed at [facility], [address] [place], [place] ??[address] ? [phone] Kaleigh Blanchard MD, PhD - Frozen Meat Cutter Blood Venous blood specimen / Unknown Venipuncture / Unknown 08/25/2024 10:45 AM EST 08/25/2024 10:46 AM EST Lisette Escobedo PA LAB BLOOD ORDERABLES Performing Organization Address City/[facility]/ZIP Co de Phone [place] [place] [address] * Antimitochondrial antibody (08/25/2024 10:45 AM EST) [facility] Mitochondrial Antibody Quantitative 2.9 <=20.0 units LAB CHEMISTRY METHOD 08/26/2024 1:02 PM EST [facility] Mitochondrial Antibody Qualitative Negative Negative LAB CHEMISTRY METHOD 08/26/2024 1:02 PM EST [facility] Blood Venous blood specimen / Unknown Venipuncture / Unknown 08/25/2024 10:45 AM EST 08/25/2024 10:46 AM EST Lisette DIETRICH LAB BLOOD ORDERABLES Performing Organization Address [facility] de Phone Number [facility] [address] [place] [address], * GGT (08/25/2024 10:45 AM EST) [facility] GGT 18 7 - 64 unit/L LAB CHEMISTRY METHOD 08/25/2024 3:01 PM EST [facility] Blood Venous blood specimen / Unknown Venipuncture / Unknown 08/25/2024 10:45 AM EST 08/25/2024 10:46 AM EST Lisette DIETRICH LAB BLOOD ORDERABLES Performing Organization Address [facility]/ZIP Co de Phone Number [facility] [address] [place] [address], [place] [phone] * Comprehensive metabolic panel (08/25/2024 10:45 AM EST) [facility] Sodium 140 133 - 145 mmol/L LAB CHEMISTRY METHOD 08/25/2024 3:19 PM [facility] Potassium 4.4 3.5 - 5.5 mmol/L LAB CHEMISTRY METHOD 08/25/2024 3:19 PM [facility] Chloride 110 96 - 110 mmol/L LAB CHEMISTRY METHOD 08/25/2024 3:19 PM [facility] CO2 26 21 - 32 mmol/L LAB CHEMISTRY METHOD 08/25/2024 3:19 PM [facility] Anion Gap 4 3 - 11 LAB CHEMISTRY METHOD 08/25/2024 3:19 PM [facility] Glucose 91 70 - 100 mg/dL LAB CHEMISTRY METHOD 08/25/2024 3:19 PM [facility] BUN 8 5 - 25 mg/dL LAB CHEMISTRY METHOD 08/25/2024 3:19 PM [facility] Creatinine 0.88 0.50 - 1.10 mg/dL LAB CHEMISTRY METHOD 08/25/2024 3:19 PM [facility] eGFR 81 >=60 mL/min/1. 73m2 LAB CHEMISTRY METHOD 08/25/2024 3:19 PM [facility] Comment:Calculation based on the??Chronic Kidney Disease Epidemiology Collaboration (CKD-EPI) equation refit??without adjustment for race. BUN/Creatinine Ratio 9.1 LAB CHEMISTRY METHOD 08/25/2024 3:19 PM [facility] Calcium 9.2 8.5 - 10.5 mg/dL LAB CHEMISTRY METHOD 08/25/2024 3:19 PM [facility] AST (SGOT) 15 10 - 42 unit/L LAB CHEMISTRY METHOD 08/25/2024 3:19 PM [facility] ALT (SGPT) 17 10 - 60 unit/L LAB CHEMISTRY METHOD 08/25/2024 3:19 PM [facility] Alkaline Phosphatase 67 42 - 121 unit/L LAB CHEMISTRY METHOD 08/25/2024 3:19 PM [facility] Total Protein 6.5 6.0 - 8.0 g/dL LAB CHEMISTRY METHOD 08/25/2024 3:19 PM [facility] Albumin 3.6 3.2 - 5.0 g/dL LAB CHEMISTRY METHOD 08/25/2024 3:19 PM EST [facility] Total Bilirubin 0.3 0.0 - 1.4 mg/dL LAB CHEMISTRY METHOD 08/25/2024 3:19 PM EST [facility] Blood Venous blood specimen / Unknown Venipuncture / Unknown 08/25/2024 10:45 AM EST 08/25/2024 10:46 AM EST Lisette DIETRICH LAB BLOOD ORDERABLES [facility] [address] [place] [address], * External clinical lab (08/05/2024) Provider [facility] BLOOD ORDERA BLES * SANDRA SCREENING DIGITAL (11/22/2023 11:33 AM EDT) Anatomical Region Laterality Modality Mammography 11/22/2023 9:06 AM EDT Narrative 11/22/2023 11:33 AM EDT [facility] Diagnostic Imaging Department [address] [place] [address] Patient: ??АННА ROJAS ?/Age/Sex: 1975 - - Unit#: ??[id number] ? Location/Status: ??SPDIMAM/REG CLI ? Mnemonic/Ordering Site: ??DIGSC/SPMAM Ordering Physician: ??VIKKI NAIDU CNM [facility] Screening Digital - 11/22/23 - 929 Report Status:Signed EXAM: [facility] Screening Digital EXAM DATE AND TIME: 11/22/2023 9:31 AM HISTORY: ??Annual screening COMPARISON: ??Multiple exams dating back to 2017 TECHNIQUE: Bilateral digital breast tomosynthesis was performed in the CC and MLO projections. Computer aided detection with NIMBOXX 3D 3.1 was employed. TISSUE DENSITY: b. There are scattered areas of fibroglandular density. FINDINGS: No suspicious masses, grouped microcalcifications, or areas of architectural distortion are seen. The skin and vascularity are unremarkable. IMPRESSION: Stable mammographic appearance of the breasts. ??No evidence of malignancy is seen. A negative mammogram in the presence of a clinically suspicious palpable abnormality does not preclude the possibility of malignancy or alter the indications for biopsy. BI-RADS: ??Category 1: Negative RECOMMENDATION(S): 1: Routine screening mammogram BILATERAL in 1 year. 3341F, 7025F Dictating Physician: ??SIDNEY HALL MD Electronically Signed by: ??SIDNEY HALL MD Dic Date/Time: ??11/22/23 1130 Sign date/Time: ??11/22/23 1133 Procedure Note Sidney Hall MD - 04/27/2024 [facility] Diagnostic Imaging Department [address] [place] [address] Patient: АННА ROJAS./Age/Sex: 1975 - 48 - F Unit#: [id number] Location/Status: [facility] CLI Mnemonic/Ordering Site: [facility] Ordering Physician: VIKKI NAIDU CNM [facility] Screening Digital - 11/22/23 - 929 Report Status:Signed EXAM: [facility] Screening Digital EXAM DATE AND TIME: 11/22/2023 9:31 AM HISTORY: Annual screening COMPARISON: Multiple exams dating back to 2017 TECHNIQUE: Bilateral digital breast tomosynthesis was performed in the CCand MLO projections. Computer aided detection with NIMBOXX 3D 3.1was employed. TISSUE DENSITY: b. There are scattered areas of fibroglandular density. FINDINGS: No suspicious masses, grouped microcalcifications, or areas ofarchitectural distortion are seen. The skin and vascularity are unremarkable. IMPRESSION: Stable mammographic appearance of the breasts. No evidence of malignancyis seen. A negative mammogram in the presence of a clinically suspicious palpable abnormality does not preclude the possibility of malignancy or alter the indications for biopsy. BI-RADS: Category 1: Negative RECOMMENDATION(S): 1: Routine screening mammogram BILATERAL in 1 year. 3341F, 7025F Dictating Physician: SIDNEY HALL MD Electronically Signed by: SIDNEY HALL MD Dic Date/Time: 11/22/23 1130 Sign date/Time: 11/22/23 1133 Vikki Naidu CNM IMG BI PROCEDURES * Pap smear (11/12/2023) 11/12/2023 Narrative HISTORICAL TESTING LAB RESULTING AGENCY - 11/26/2023 10:15 AM EDT [id number] THINPREP PAP, IMAGED: NEGATIVE FOR SQUAMOUS INTRAEPITHELIAL LESION AND MALIGNANCY . AUSTIN DÍAZ(ASCP) (CASE ELECTRONICALLY SIGNED 11 26 2023) RESULT OF APTIMA HIGH RISK HPV ASSAY: HIGH RISK HPV: ??NEGATIVE (SEROTYPES 16,18,31,33,35,39,45,51,52,56,58,59,66,68) COMPLETED ON 2023-11-14 ADEQUACY: SATISFACTORY ENDOCERVICAL/TRANSFORMATION ZONE COMPONENT ABSENT. SOURCE: THINPREP PAP HPV ANY DX: ??REFLEX 16 AND 18, CERVICAL, IMAGED CLINICAL INFORMATION: HPV ANY DIAGNOSIS. HORMONES, PAP HX NEGATIVE 2020, [Z01.419] Vikki [facility] CYTOLOGY ORDERAB LES HISTORICAL TESTING LAB RESULTING AGENCY from Last 3 Months or Most Recently Relevant to Health Maintenance Care Teams Child Care Teacher Relationship Specialty Start Date End Date Lillian Miguel MD [address] [facility] [address] [place] [id number] PCP - General Internal Medicine 06/27/20
--- OUTSIDE RECORDS SUMMARY | 2024-10-06 11:30 | XMS_ITS | Encounter Summary ---
Author Organization [facility] Address [address] [place] [address] Care Team Providers Care Lumber Scaler Name Role Phone Lillian Miguel MD Primary Care Provider [phone] [phone] Encounter Details Date Type Department Care Team Description 03/11/2024 Telephone Gastroenterology - [address] [place] [address] Lisette Escobedo DScPAS Social History Tobacco Use Types Packs/Day Years [...] on filedocumented in this encounter Care Teams Lumber Scaler Relationship Specialty Start Date End Date Lillian Miguel MD PCP - General Internal Medicine 06/27/20 documented as of this encounter
--- OUTSIDE RECORDS SUMMARY | 2024-10-06 11:30 | XMS_ITS | Encounter Summary ---
Author Organization [facility] Address [address] [place] [address] Care Team Providers Care Speeder Frame Tender Name Role Phone Lillian Miguel MD Primary Care Provider [phone] [phone] Encounter Details Date Type Department Care Team Description 11/15/2021 Orders Only Medical Records [address] [place] [address] Lillian Miguel MD [address] [place] [phone] Social History Tobacco Use Types Packs/Day [...] Date/Time Associated Diagnosis Comments OUTSIDE MAMMO Routine 11/15/2021 documented in this encounter Results * OUTSIDE MAMMO (11/15/2021) Lillian Miguel MD RADIOLOGY documented in this encounter Visit Diagnoses Not on filedocumented in this encounter Care Teams Speeder Frame Tender Relationship Specialty Start Date End Date Lillian Miguel MD PCP - General Internal Medicine 06/27/20 documented as of this encounter
--- OUTSIDE RECORDS SUMMARY | 2024-10-06 11:30 | XMS_ITS | Encounter Summary ---
Author Organization [facility] Address [address] [place] [address] Care Team Providers Care Card Cleaner Name Role Phone Lillian Miguel MD Primary Care Provider [phone] Reason for Visit * Reason Onset Date Comments Prior Authorization 12/05/2021 CT chest Encounter Details Date Type Department Care Team Description 12/05/2021 Telephone Adult Medicine [address] [address] Demetra Wheeler MD [address] [place] [phone] Prior Authorization (CT chest) Social History Tobacco Use Types Packs/Day Years Used Date Smoking Tobacco: Former Cigarettes Q uit: 09/04/2021 Smokeless Tobacco: Never Comments:1/2 ppk/ dy [...] encounter Miscellaneous Notes * Telephone Encounter - Demetra Wheeler MD - 12/05/2021 6:51 PM EDT F/u in 2022 - not this yr * Telephone Encounter - Anita Slade - 12/05/2021 11:27 AM EDT You placed another external order for December 2021. I see that she just had one done in Oct and showsto do a follow up in one year. Was this order suppose to be for 2022? If so, please place a new external for a future date and I will cancel this one. Please advise and/or confirm. Thank you, Anita Slade Prior Auth Dept [phone] documented in this encounter Plan of Treatment Not on file documented as of this encounter Visit Diagnoses Not on filedocumented in this encounter Care Teams Card Cleaner Relationship Specialty Start Date End Date Lillian Miguel MD PCP - General Internal Medicine 06/27/20 documented as of this encounter
--- OUTSIDE RECORDS SUMMARY | 2024-10-06 11:30 | XMS_ITS | Encounter Summary ---
Author Organization [facility] Address [address] [place] [address] Care Team Providers Care Center Consultant Name Role Phone Lillian Miguel MD Primary Care Provider [phone] Encounter Details Date Type Department Care Team Description 04/10/2024 Pt. Non Urgent Medical Question Internal Medicine - [address], [address] [place] [address] Lillian Miguel MD [address] [place] [phone] Social History Tobacco Use Types Packs/Day [...] on filedocumented in this encounter Care Teams Center Consultant Relationship Specialty Start Date End Date Lillian Miguel MD PCP - General Internal Medicine 06/27/20 documented as of this encounter
--- OUTSIDE RECORDS SUMMARY | 2024-10-06 11:30 | XMS_ITS | Encounter Summary ---
Author Organization [facility] Address [address] [place] [address] Care Team Providers Care Bobbin Cleaning Machine Operator Name Role Phone Lillian Miguel MD Primary Care Provider [phone] Encounter Details Date Type Department Care Team Description 04/20/2021 Director Medical Economics Report Medical Records [address] [place] [address] Thad Reyes MD Social History Tobacco Use [...] on filedocumented in this encounter Care Teams Bobbin Cleaning Machine Operator Relationship Specialty Start Date End Date Lillian Miguel MD PCP - General Internal Medicine 06/27/20 documented as of this encounter
--- OUTSIDE RECORDS SUMMARY | 2024-10-06 11:30 | XMS_ITS | Encounter Summary ---
Author Organization [facility] Address [address] [place] [address] Care Team Providers Care Lead Business Systems Analyst Name Role Phone Lillian Miguel MD Primary Care Provider [phone] Reason for Visit * Reason Onset Date Comments TEST RESULTS 04/01/2024 Encounter Details Date Type Department Care Team Description 04/01/2024 Pt. Non Urgent Medical Question Internal Medicine - [address], [address] [place] [address] Lillian Miguel MD [address] [place] [phone] Social History Tobacco Use Types Packs/Day [...] on file documented as of this encounter Miscellaneous Notes * Telephone Encounter - Hannah Montemayor M.A. - 04/02/2024 8:36 AM EDTFrom: Анна Rojas To: Bobby Miguel Sent: 04/01/2024 7:36 PM EDT Subject: Results Should I be concerned with blood work results and was my A1c ok? documented in this encounter Plan of Treatment Not on file documented as of this encounter Visit Diagnoses Not on filedocumented in this encounter Care Teams Lead Business Systems Analyst Relationship Specialty Start Date End Date Lillian Miguel MD PCP - General Internal Medicine 06/27/20 documented as of this encounter
--- OUTSIDE RECORDS SUMMARY | 2024-10-06 11:30 | XMS_ITS | Encounter Summary ---
Author Organization [facility] Address [address] [place] [address] Care Team Providers Care Pharmaceutical Worker Name Role Phone Lillina Miguel MD Primary Care Provider [phone] Encounter Details Date Type Department Care Team Description 10/10/2022 Pt. Non Urgent Medical Question Internal Medicine - [address], [address] [place] [address] Lillian Miguel MD [address] [place] [phone] Social History Tobacco Use Types Packs/Day [...] suspected to have Coronavirus/COVID-19? No / Unsure 10/09/2022 8:44 AM EST documented as of this encounter Plan of Treatment Not on file documented as of this encounter Visit Diagnoses Not on filedocumented in this encounter Care Teams Pharmaceutical Worker Relationship Specialty Start Date End Date Lillian Miguel MD PCP - General Internal Medicine 06/27/20 documented as of this encounter
--- OUTSIDE RECORDS SUMMARY | 2024-10-06 11:30 | XMS_ITS | Encounter Summary ---
Author Organization [facility] Address [address] [place] [address] Care Team Providers Care Superintendent Maintenance Name Role Phone Lillian Miguel MD Primary Care Provider [phone] Reason for Visit * Reason Onset Date Comments Faxed Refill 06/19/2021 Encounter Details Date Type Department Care Team Description 06/19/2021 Refill Internal Medicine - [address], [address] [place] [address] Lillian Miguel MD [address] [place] [phone] Faxed Refill Social History Tobacco Use Types Packs/Day Years [...] encounter Miscellaneous Notes * Telephone Encounter - Cherise Rea - 06/19/2021 4:17 PM EDT Patient would like script to be: E-PRESCRIBED/FAXED TO PHARMACY WHEN WAS THE PATIENT'S LAST APPOINTMENT IN ADULT MEDICINE? 03/17/21 WHEN WAS THE LAST TIME THE PATIENT SAW THEIR PCP? Same as above Does patient have an upcoming appointment? Yes 10/05/21 (THE MEDICATION REQUESTED IS ON THE MED LIST ABOVE) All of the medications requested were on the CURRENT MEDS list Did you check the Pharmacy information above?: YES Patient wants: 90 -day supply Is this a mail order prescription request ? NO If the refill is from a FAXED refill request what is the RX # listed on the fax? [phone] Patients current insurance carrier is: [place] / [place] / Product Type: [place] [id number] documented in this encounter Plan of Treatment Not on file documented as of this encounter Visit Diagnoses Not on filedocumented in this encounter Care Teams Superintendent Maintenance Relationship Specialty Start Date End Date Lillian Miguel MD PCP - General Internal Medicine 06/27/20 documented as of this encounter
--- OUTSIDE RECORDS SUMMARY | 2024-10-06 11:30 | XMS_ITS | Encounter Summary ---
Author Organization [facility] Address [address] [place] [address] Care Team Providers Care Jewelry Making Instructor Name Role Phone Lillian Miguel MD Primary Care Provider [phone] Encounter Details Date Type Department Care Team Description 10/12/2020 Dance Therapist Report Medical Records [address] [place] [address] Thad Reyes MD Social History Tobacco Use [...] on filedocumented in this encounter Care Teams Jewelry Making Instructor Relationship Specialty Start Date End Date Lillian Miguel MD PCP - General Internal Medicine 06/27/20 documented as of this encounter
--- OUTSIDE RECORDS SUMMARY | 2024-10-06 11:30 | XMS_ITS | Encounter Summary ---
Author Organization [facility] Address [address] [place] [address] Care Team Providers Care Administrative Supervisor Name Role Phone Lillian Miguel MD Primary Care Provider [phone] Encounter Details Date Type Department Care Team Description 03/22/2024 Refill Pulmonology - [facility] [address] [facility] [address] [place] [phone] Demetra Wheeler MD [address] [place] [address] Social History Tobacco Use Types Packs/Day Years [...] encounter Miscellaneous Notes * Telephone Encounter - Gt Lopez CMA - 03/23/2024 9:51 AM EDT ARTHUR 01/10/24 No future appt. documented in this encounter Plan of Treatment Not on file documented as of this encounter Visit Diagnoses Diagnosis Chronic obstructive pulmonary disease, unspecified COPD type (HCC) documented in this encounter Care Teams Administrative Supervisor Relationship Specialty Start Date End Date Lillian Miguel MD PCP - General Internal Medicine 06/27/20 documented as of this encounter
--- OUTSIDE RECORDS SUMMARY | 2024-10-06 11:30 | XMS_ITS | Encounter Summary ---
Author Organization [facility] Address [address] [place] [address] Care Team Providers Care Supervisor Finishing Room Name Role Phone Lillian Miguel MD Primary Care Provider [phone] Encounter Details Date Type Department Care Team Description 03/22/2021 Pt. Non Urgent Medical Question Internal Medicine - [address], [address] [place] [address] Lillian Miguel MD [address] [place] [phone] Social History Tobacco Use Types Packs/Day [...] have Coronavirus / COVID-19? No / Unsure 03/17/2021 2:32 PM EDT documented as of this encounter Miscellaneous Notes * Telephone Encounter - Paloma GUERRIER - 03/22/2021 12:14 PM EDTFrom: Анна Rojas To: Bobby Miguel Sent: 03/22/2021 11:55 AM EDT Subject: Question regarding BLOOD TEST PANEL - CMP Based off my blood work do i need more B12 shots? And is this glucose test normal to ne low? documented in this encounter Plan of Treatment Not on file documented as of this encounter Visit Diagnoses Not on filedocumented in this encounter Care Teams Supervisor Finishing Room Relationship Specialty Start Date End Date Lillian Miguel MD PCP - General Internal Medicine 06/27/20 documented as of this encounter
--- OUTSIDE RECORDS SUMMARY | 2024-10-06 11:31 | XMS_ITS | Encounter Summary ---
Author Organization [facility] Address [address] [place] [address] Care Team Providers Care Assistant Professor Of History Name Role Phone Lillian Miguel MD Primary Care Provider [phone] Encounter Details Date Type Department Care Team Description 12/16/2023 Pattern Lease Inspector Report Medical Records [address] [place] [address] Maci Sheridan [address] [place] [address] Social History Tobacco Use Types Packs/Day Years [...] on filedocumented in this encounter Care Teams Assistant Professor Of History Relationship Specialty Start Date End Date Lillian Miguel MD PCP - General Internal Medicine 06/27/20 documented as of this encounter
--- OUTSIDE RECORDS SUMMARY | 2024-10-06 11:31 | XMS_ITS | Encounter Summary ---
Author Organization [facility] Address [address] [place] [address] Care Team Providers Care Delivery Mgr Name Role Phone Lillian Miguel MD Primary Care Provider [phone] Reason for Visit * Reason Onset Date Comments Medication 10/25/2021 Encounter Details Date Type Department Care Team Description 10/25/2021 Telephone Internal Medicine - [address], [address] [place], [place] [id number] Lillian Miguel MD [address] [place] [phone] Medication Social History Tobacco Use Types Packs/Day [...] or suspected to have Coronavirus / COVID-19? Yes 10/05/2021 1:18 PM EST documented as of this encounter Miscellaneous Notes * Telephone Encounter - Humberto Shaw M.A. - 10/26/2021 8:34 AM EST I called pt and made her aware. * Telephone Encounter - Lillian Miguel MD - 10/26/2021 7:08 AM EST Okay ask her to do it every month * Telephone Encounter - Humberto Shaw M.A. - 10/25/2021 4:19 PM EST Fwd to dr. Miguel please review and advise thanks * Telephone Encounter - Cherise Rea - 10/25/2021 4:14 PM EST Patient calling in regards to B12 injections. States Dr. Miguel had changed from monthly to every3 months. States this is not working, its stretching too far over 3 months, her levels get too low.States her oncology provider, Dr. Reyes also states it needs to be every month. Please advise. documented in this encounter Plan of Treatment Not on file documented as of this encounter Visit Diagnoses Not on filedocumented in this encounter Care Teams Delivery Mgr Relationship Specialty Start Date End Date Lillian Miguel MD PCP - General Internal Medicine 06/27/20 documented as of this encounter
--- OUTSIDE RECORDS SUMMARY | 2024-10-06 11:31 | XMS_ITS | Encounter Summary ---
Author Organization [facility] Address [address] [place] [address] Care Team Providers Care Facilities Maintenance Manager Name Role Phone Lillian Miguel MD Primary Care Provider [phone] Encounter Details Date Type Department Care Team Description 10/19/2021 Center Consultant Report Medical Records [address] [place] [address] Thad Reyes MD Social History Tobacco Use [...] on filedocumented in this encounter Care Teams Facilities Maintenance Manager Relationship Specialty Start Date End Date Lillian Miguel MD PCP - General Internal Medicine 06/27/20 documented as of this encounter
--- OUTSIDE RECORDS SUMMARY | 2024-10-06 11:31 | XMS_ITS | Encounter Summary ---
Author Organization [facility] Address [address] [place] [address] Care Team Providers Care Surgical Pathologist Name Role Phone Lillian Miguel MD Primary Care Provider [phone] Reason for Visit * Reason Onset Date Comments Faxed Refill 05/02/2021 Encounter Details Date Type Department Care Team Description 05/02/2021 Refill Internal Medicine - [address], [address] [place] [address] Lillian Miguel MD [address] [place] [phone] Faxed Refill Social History Tobacco Use [...] have Coronavirus / COVID-19? No / Unsure 05/04/2021 1:29 PM EDT documented as of this encounter Miscellaneous Notes * Telephone Encounter - Cherise Rea - 05/02/2021 4:06 PM EDT Patient would like script to be: E-PRESCRIBED/FAXED TO PHARMACY WHEN WAS THE PATIENT'S LAST APPOINTMENT IN ADULT MEDICINE? 03/17/2021 WHEN WAS THE LAST TIME THE PATIENT SAW THEIR PCP? Same as above Does patient have an upcoming appointment? Yes 05/04/2021 (THE MEDICATION REQUESTED IS ON THE MED LIST ABOVE) All of the medications requested were on the CURRENT MEDS list Did you check the Pharmacy information above?: YES Patient wants: 30 -day supply Is this a mail order prescription request ? NO If the refill is from a FAXED refill request what is the RX # listed on the fax? [id number] Patients current insurance carrier is: [place] / [place] / Product Type: [place]ARE [id number] documented in this encounter Plan of Treatment Not on file documented as of this encounter Visit Diagnoses Not on filedocumented in this encounter Care Teams Surgical Pathologist Relationship Specialty Start Date End Date Chaganti, Lillian Josefa, MD PCP - General Internal Medicine 06/27/20 documented as of this encounter
--- OUTSIDE RECORDS SUMMARY | 2024-10-06 11:31 | XMS_ITS | Encounter Summary ---
Author Organization [facility] Address [address] [place] [address] Care Team Providers Care Tattoo Designer Name Role Phone Lillian Migeul MD Primary Care Provider [phone] Reason for Visit * Reason Comments E-prescribe Rx Request Encounter Details Date Type Department Care Team Description 09/28/2021 Refill Pulmonology - [place] [address] [facility] [address] [place] [address] Demetra Wheeler MD [address] [place] [address] E-prescribe Rx Request Social History Tobacco Use Types Packs/Day Years Used Date Smoking Tobacco: Every Day Cigarettes Smokeless Tobacco: Never Comments:1/ ppk/ dy Alcohol [...] encounter Miscellaneous Notes * Telephone Encounter - Geraldineleif Salcedo Jaiden - 09/29/2021 3:51 PM EST Patient would like script to be: [...] / [place] / Product Type: [place]ICARE [id number] documented in this encounter Plan of Treatment Not on file documented as of this encounter Visit Diagnoses Diagnosis Chronic obstructive pulmonary disease, unspecified COPD type (HCC) Cigarette smoker Tobacco use disorder documented in this encounter Care Teams Tattoo Designer Relationship Specialty Start Date End Date Lillian Miguel MD PCP - General Internal Medicine 06/27/20 documented as of this encounter
--- OUTSIDE RECORDS SUMMARY | 2024-10-06 11:31 | XMS_ITS | Encounter Summary ---
Author Organization [facility] Address [address] [place] [address] Care Team Providers Care Central Sterile Supply Technician Name Role Phone Lillian Miguel MD Primary Care Provider [phone] Encounter Details Date Type Department Care Team Description 02/05/2024 Refill Pulmonology - [place] [address] [facility] [address] [place] [phone] Demetra Wheeler MD [address] [place] [address] Social History Tobacco Use Types [...] (HCC) documented in this encounter Care Teams Central Sterile Supply Technician Relationship Specialty Start Date End Date Lillian Miguel MD PCP - General Internal Medicine 06/27/20 documented as of this encounter
--- OUTSIDE RECORDS SUMMARY | 2024-10-06 11:31 | XMS_ITS | Encounter Summary ---
Author Organization [facility] Address [address] [place] [address] Care Team Providers Care Cooling System Operator Name Role Phone Lillian Miguel MD Primary Care Provider [phone] Encounter Details Date Type Department Care Team Description 02/05/2024 Refill Pulmonology - [place] [address] [facility] [address] [place] [phone] Demetra Wheeler MD [address] [place] [address] Social History Tobacco Use Types [...] (HCC) documented in this encounter Care Teams Cooling System Operator Relationship Specialty Start Date End Date Lillian Miguel MD PCP - General Internal Medicine 06/27/20 documented as of this encounter
== END 2024-10-06 11:02 | disposition home or self-care (01) ==
PROVIDERS: PCP Internal Medicine; Visit Provider Student in an Organized Health Care Education/Training Program
DX: K75.4 Autoimmune hepatitis (principal); R76.8 Other specified abnormal immunological findings in serum
CPT/HCPCS: 99213

== ENCOUNTER → 2024-10-06 10:29 | Outpatient (BNVA) | payer MEDICARE, MEDICAID, SELFPAY | PROVIDERS: PCP Internal Medicine; Visit Provider Student in an Organized Health Care Education/Training Program | DX: K75.4 Autoimmune hepatitis (principal); R76.8 Other specified abnormal immunological findings in serum | CPT/HCPCS: 99212 ==

== ENCOUNTER 2024-11-30 10:02 | Outpatient (AMB) | payer MEDICARE, MEDICAID, SELFPAY ==
--- NOTE | 2024-11-30 10:11 | A.OFFVIS_ITS ---
VS Expanded 11/30/24 10:19 Height 5 ft 6 in Weight 199 lb 8.293 oz BMI 32.2 Intake Visit Reasons: Fatty Liver Allergies cyclobenzaprine Allergy (Unknown, Verified 10/06/24 10:35) Unknown hydroxychloroquine [From Plaquenil] Allergy (Unknown, Verified 10/06/24 10:35) Unknown sulfamethoxazole [From Bactrim] Allergy (Unknown, Verified 10/06/24 10:35) Unknown trimethoprim [From Bactrim] Allergy (Unknown, Verified 10/06/24 10:35) Unknown hydrochlorothiazide Adverse Reaction (Unknown, Verified 10/06/24 10:35) Unknown Sulfa (Sulfonamide Antibiotics) Adverse Reaction (Unknown, Verified 10/06/24 10:35) Unknown tramadol Adverse Reaction (Unknown, Verified 10/06/24 10:35) Unknown sulfa drugs Adverse Reaction (Unknown, Uncoded 10/06/24 10:35) Unknown Medication List - Last Reconciled 12/08/[address], LDN albuterol sulfate 90 mcg/actuation inhalation betamethasone dipropionate 0.05% appl topical cholecalciferol (vitamin D3) 50 mcg PO DAILY famotidine 40 mg PO DAILY pantoprazole 40 mg PO DAILY resmetirom (Rezdiffra) 80 mg PO DAILY Nutrition Presentation Details: Pt presents for 6 m MNT f/u for fatty liver Pt reports she is currently on Rezdifer 80 mg/day - started a month ago typically having sourdough bread with egg and cheese, ovocado, water sometimes skips lunch due to feeling too full dinner chicken or fish (grilled) rice and frozen mixed veg fluids: water, diluted juices iwth water or milk working on reducing fried foods and choosing homemade meals BS Monitoring Most Recent Diabetes Results: Creatinine 0.87 mg/dL (0.5-1.4) 08/05/24 Blood Urea Nitrogen 9 mg/dL (9-16) 08/05/24 Sodium 143 mmol/L (135-145) 08/05/24 Potassium 3.9 mmol/L (3.3-5.1) 08/05/24 Chloride 109 mmol/L (96-108) H 08/05/24 Carbon Dioxide 25 mmol/L (22-29) 08/05/24 Calcium 8.9 mg/dL (8.4-10.2) 08/05/24 AST 22 U/L (5-31) 08/05/24 ALT 17 U/L (0-31) 08/05/24 Total Protein 6.3 g/dL (6.5-8.0) L 08/05/24 Albumin 3.9 g/dL (3.5-5.0) 08/05/24 PFSH Medical History (Updated 12/08/24 @ 21:[address], LDN) Autoimmune hepatitis Vitamin B12 deficiency Positive BERNARDA (antinuclear antibody) Axillary lymphadenopathy delivery delivered Surgical History Hx of colonoscopy S/P endoscopy Status post hysteroscopic ablation of endometrium Hx of tubal ligation H/O eye surgery H/O arthroscopy Family History Mother Leukemia Stroke Dementia Father Diabetes Hypertension CKD (chronic kidney disease) Social History Alcohol intake: never Patient Tobacco Use Status: Former Tobacco user Assessment & Plan Assessment & Plan (1) Fatty liver: Code(s): K76.0 - Fatty (change of) liver, not elsewhere classified Category: Medical Plan: Work on choosing low fat foods - see low fat meal plan (2) Obesity (BMI 30.0-34.9): Comment: Pt reports also having gastroparesis and pre DM- will review low fat diet concepts Code(s): E66.9 - Obesity, unspecified Category: Medical Plan: USed wt : 90 kg (11/2024) , Est kcal needs as per MSJ: 1852 (40% carb, 30% protein/fat) Est fluid needs as per 25-30 ml/d: 2225 Est prot per day as per 1 g/kg bw: 89 Recommend fiber intake : 8-10 g per day and gradually increase to 25-28 g per day or as tolerated Recommend sodium intake per day : less than 2000 mg Educated patient on: ( R = reviewed V = verbalizes understanding N/R = needs review N/A = not applicable * Food sources of carbohydrate, adequate serving sizes and its role in various health conditions: R * Differences between complex carbohydrates a simple carbohydrates, role of fib er in diet: R * Differences between types of fats and role in diet (mono on saturated fat fatty acids, saturated fatty acids, trans fats): R basic low fat * Food sources of sodium in salt and healthy modifications for heart health in kidney health: NR * Healthy plate method concept: R * Physical activity: Benefits a precaution: R Patient Instructions: Have a protein shake in place of skipping meal Follow Mediterranean style diet, include fish at least twice a week Keep hydrated by having water with meals/snack abstain from alcohol intake Coding Level of Care Code Nutr Indiv Subseq (86272) Diagnoses Fatty liver K76.0 Obesity (BMI 30.0-34.9) E66.9 Time Spent (min) 30
[2024-11-30 10:19] VITALS: BMI 32.2
== END 2024-11-30 11:05 | disposition home or self-care (01) ==
LOC: HO.ENCR 10:02
PROVIDERS: PCP Internal Medicine; Visit Provider Dietitian, Registered
DX: K76.0 Fatty (change of) liver, not elsewhere classified (principal); E66.9 Obesity, unspecified

== ENCOUNTER → 2024-11-30 10:02 | Outpatient (BNVA) | payer MEDICARE, MEDICAID, SELFPAY | PROVIDERS: PCP Internal Medicine; Visit Provider Dietitian, Registered | DX: E66.9 Obesity, unspecified (principal); K76.0 Fatty (change of) liver, not elsewhere classified; Z71.3 Dietary counseling and surveillance; Z68.32 Body mass index [BMI] 32.0-32.9, adult | CPT/HCPCS: 97803 ==